=== PATIENT | female | born 1965 | race Hispanic/Latino ===

== ENCOUNTER 2017-07-25 20:35 | Emergency (ER) | payer MEDICAID ==
[2017-07-25] MEDS ORDERED: KETOROLAC TROMETHAMINE 60 MG/2 ML VIAL ONE (20:44)
[2017-07-25] MEDS ORDERED: ACETAMINOPHEN EXTRA STRENGTH 500 MG TABLET ONE (20:44)
[2017-07-25] MEDS ORDERED: OSELTAMIVIR PHOSPHATE 75 MG CAP ONE (21:06)
== END 2017-07-25 22:10 | disposition home or self-care (01) ==
LOC: EDH 20:35
DX: J11.1 Influenza due to unidentified influenza virus with other respiratory manifestations (principal); F31.9 Bipolar disorder, unspecified; Z72.0 Tobacco use
CPT/HCPCS: 87804 ×2; 99284; J1885

== ENCOUNTER 2017-08-06 14:07 | Emergency (ER) | payer MEDICAID ==
[2017-08-06 15:30] LABS: BASOPHILS % (AUTO) 0.3 % (0.0-5.0); EOSINOPHILS % (AUTO) 1.2 % (0.0-8.0); LYMPHOCYTES % (AUTO) 16.9 % (21.0-51.0); MEAN CORPUSCULAR HEMOGLOBIN 25.4 pg (27.0-33.0); MEAN CORPUSCULAR HGB CONC 31.9 g/dL (32.0-36.0); MEAN CORPUSCULAR VOLUME 79.6 fL (79-99); MONOCYTES % (AUTO) 10.2 % (3.0-13.0); NEUTROPHILS % (AUTO) 71.4 % (40.0-77.0); PLATELET COUNT (AUTO) 399 K/uL (130-400); RED BLOOD CELL COUNT(AUTO) 4.65 MIL/uL (4.00-5.50); RED CELL DISTRIBUTION WIDTH 16.2 % (11.0-15.5); WHITE BLOOD COUNT (AUTO) 15.3 K/uL (4.8-10.8)
[2017-08-06 15:47] LABS: CREATININE 0.7 mg/dL (0.5-1.5); POTASSIUM 3.4 mmol/L (3.5-5.1)
[2017-08-06 15:51] LABS: ALBUMIN 3.1 g/dL (3.5-5.0); BILIRUBIN,TOTAL 0.7 mg/dL (0.2-1.0); TOTAL PROTEIN, SERUM 7.6 g/dL (6.0-8.3)
== END 2017-08-06 16:23 | disposition home or self-care (01) ==
LOC: EDH 14:07
DX: J06.9 Acute upper respiratory infection, unspecified (principal)
CPT/HCPCS: 36415; 71046; 80053; 85025

== ENCOUNTER 2018-01-21 16:24 | Emergency (ER) | payer MEDICAID ==
[2018-01-21 16:54] LABS: APPEARANCE,URINE Clear (CLEAR); BILIRUBIN,URINE Negative (NEGATIVE); COLOR,URINE Dark Yellow (YELLOW); GLUCOSE, URINE (UA) Negative (NEGATIVE); KETONES,URINE Negative (NEGATIVE); LEUKOCYTE ESTERASE ,URINE Negative (NEGATIVE); NITRATE,URINE Negative (NEGATIVE); OCCULT BLOOD,URINE Negative (NEGATIVE); PH,URINE 5.5 (5.0-8.0); PROTEIN,URINE Trace (NEGATIVE)
[2018-01-21 16:59] LABS: BASOPHILS % (AUTO) 0.9 % (0.0-5.0); EOSINOPHILS % (AUTO) 5.4 % (0.0-8.0); HEMATOCRIT 41.2 % (36-48); MEAN CORPUSCULAR HEMOGLOBIN 28.6 pg (27.0-33.0); MEAN CORPUSCULAR HGB CONC 33.8 g/dL (32.0-36.0); MEAN CORPUSCULAR VOLUME 84.4 fL (79-99); MONOCYTES % (AUTO) 7.2 % (3.0-13.0); NEUTROPHILS % (AUTO) 56.5 % (40.0-77.0); PLATELET COUNT (AUTO) 275 K/uL (130-400); RED BLOOD CELL COUNT(AUTO) 4.89 MIL/uL (4.00-5.50); RED CELL DISTRIBUTION WIDTH 14.6 % (11.0-15.5); WHITE BLOOD COUNT (AUTO) 8.1 K/uL (4.8-10.8)
[2018-01-21 17:04] LABS: BACTERIA,URINE Rare /HPF (None Seen); MUCUS,URINE Many LPF (None Seen); RBC,URINE None Seen /HPF (0-1); SQUAMOUS EPITHELIAL CELL,UR 0-2 /HPF (0-2); WBC,URINE None Seen /HPF (0-1)
[2018-01-21 17:20] LABS: CREATININE 0.8 mg/dL (0.5-1.5); POTASSIUM 3.5 mmol/L (3.5-5.1)
[2018-01-21 17:21] LABS: AMPHET/METH SCREEN,URINE NEGATIVE (NEGATIVE); BARBITURATE SCREEN, URINE NEGATIVE (NEGATIVE); BENZODIAZEPINES SCREEN,URINE NEGATIVE (NEGATIVE); CANNABINOID SCREEN,URINE NEGATIVE (NEGATIVE); COCAINE SCREEN,URINE NEGATIVE (NEGATIVE); OPIATE SCREEN,URINE NEGATIVE (NEGATIVE); PHENCYCLIDINE SCREEN,URINE NEGATIVE (NEGATIVE)
[2018-01-21 17:22] LABS: INR 0.95 (0.85-1.15); PARTIAL THROMBOPLASTIN TIME 23.4 SEC (26.3-35.5)
[2018-01-21 17:33] LABS: ALBUMIN 3.3 g/dL (3.5-5.0); BILIRUBIN,TOTAL 0.3 mg/dL (0.2-1.0); CREATINE KINASE MB 0.7 ng/mL (0.5-3.6); TOTAL PROTEIN, SERUM 7.8 g/dL (6.0-8.3)
[2018-01-21] MEDS ORDERED: POLYETHYLENE GLYCOL 3350 17 GM POWD.PACK ONE (17:54)
[2018-01-21] MEDS ORDERED: HYOSCYAMINE SULFATE 0.125 MG TAB.SUBL SL ONE (17:55)
== END 2018-01-21 19:28 | disposition home or self-care (01) ==
LOC: EDH 16:24
DX: K59.00 Constipation, unspecified (principal); R10.32 Left lower quadrant pain; R03.0 Elevated blood-pressure reading, without diagnosis of hypertension; F31.9 Bipolar disorder, unspecified; Z87.442 Personal history of urinary calculi; Z90.710 Acquired absence of both cervix and uterus; Z72.0 Tobacco use
CPT/HCPCS: 36415; 74018; 80053; 80305; 81001; 82550; 82553; 83690; 84484; 85025; 85610; 85730; 93005

== ENCOUNTER 2024-11-29 09:14 | Inpatient (IN) | payer MEDICAID ==
[~2024-11-29] VITALS: Ht 149.9 cm; Wt 86.2 kg
[2024-11-29] MEDS: MAG/ALUM/SIMETH 30 ML UDCUP PO ONE (09:56)
[2024-11-29 09:57] LABS: APPEARANCE,URINE CLEAR (CLEAR); BILIRUBIN,URINE NEGATIVE (NEGATIVE); COLOR,URINE LIGHT-YELLOW (YELLOW); GLUCOSE, URINE (UA) NEGATIVE (NEGATIVE); KETONES,URINE NEGATIVE (NEGATIVE); LEUKOCYTE ESTERASE ,URINE NEGATIVE Leu/uL (NEGATIVE); NITRATE,URINE NEGATIVE (NEGATIVE); OCCULT BLOOD,URINE MODERATE (NEGATIVE); PROTEIN,URINE NEGATIVE (NEGATIVE); UROBILINOGEN,URINE 0.2 mg/dL (0.2-1.0)
[2024-11-29] MEDS: ondanSETRON 4MG INJ IVP ONE (09:57)
[2024-11-29] MEDS: FAMOTIDINE 20MG VIAL IV ONE (09:57)
[2024-11-29] MEDS: DICYCLOMINE HCL 10 MG/5 ML ML PO ONE (09:57)
[2024-11-29] MEDS: LIDOCAINE HCL 2% VISCOUS 15 ML UDCUP PO ONE (09:57)
[2024-11-29] MEDS: DICYCLOMINE 20MG (10MG/ML) AMP IM ONE (09:57)
[2024-11-29] MEDS: HYOSCYAMINE SULFATE 0.125 MG TAB.SUBL SL ONE (09:57)
[2024-11-29] MEDS: PANTOPrazole 40 MG/VIAL IVP ONE (09:57)
[2024-11-29 09:59] LABS: BASOPHILS # (AUTO) 0.06 K/uL (0.00-0.20); EOSINOPHILS # (AUTO) 0.67 K/uL (0.00-0.70); HEMATOCRIT 37.8 % (36-48); IMMATURE GRANULOCYTE ABSOLUTE 0.02 K/uL (0-1); LYMPHOCYTES # (AUTO) 1.4 K/uL (1.0-4.8); LYMPHOCYTES % (AUTO) 23.1 % (21.0-51.0); MEAN CORPUSCULAR HEMOGLOBIN 33.4 pg (27.0-33.0); MEAN CORPUSCULAR HGB CONC 33.9 g/dL (32.0-36.0); MEAN CORPUSCULAR VOLUME 98.7 fL (79-99); MONOCYTES # (AUTO) 0.7 K/uL (0.1-1.0); MONOCYTES % (AUTO) 10.7 % (3.0-13.0); NEUTROPHILS # (AUTO) 3.3 K/uL (1.8-7.7); NEUTROPHILS % (AUTO) 53.9 % (40.0-77.0); PLATELET COUNT (AUTO) 92 K/uL (130-400); RED BLOOD CELL COUNT(AUTO) 3.83 MIL/uL (4.00-5.50); RED CELL DISTRIBUTION WIDTH 16.2 % (11.0-15.5); WHITE BLOOD COUNT (AUTO) 6.1 K/uL (4.8-10.8)
[2024-11-29 10:03] LABS: ADD UA MICROSCOPIC YES
[2024-11-29 10:05] LABS: SQUAMOUS EPITHELIAL CELL,UR FEW /HPF (0-2); WBC,URINE 0-1 /HPF (0-1)
[2024-11-29 10:06] LABS: CREATININE 0.7 mg/dL (0.5-1.0); POTASSIUM 3.7 mmol/L (3.5-5.1)
[2024-11-29 10:08] LABS: ALBUMIN 2.2 g/dL (3.5-5.0); BILIRUBIN,TOTAL 2.7 mg/dL (0.2-1.0); TOTAL PROTEIN, SERUM 6.7 g/dL (6.0-8.3)
--- NOTE | 2024-11-29 10:16 | ERN ---
General Chief Complaint: Abdominal Pain Stated Complaint: "STOMACH PAIN." Time Seen by MD: 09:16 History of Present Illness Initial Comments Ms. Pinedo is a 59-year-old female significant past medical history of gastritis, cirrhosis, GERD, fibromyalgia, kidney stones who presents today with a acute on chronic epigastric abdominal pain and diarrhea. She describes the pain as intense, gas like, sometimes radiating to the back, and temporarily relieved by passing gas. She reports frequent watery stools, abdominal distention and pain with movement or pressure. She also endorses bloating and visible stretch more changes suggesting ascites. Patient reports that she takes lactulose but has held it to secondary to her diarrhea. She denies fever chills nausea vomiting or chest pain. Allergies: Coded Allergies: No Known Drug Allergies (Unverified Allergy, Unknown, 11/29/24) Past Medical History Past Medical History: Cancer, Fibromyalgia, Gallstones, GERD, Hypertension, Kidney Stone, Liver Disease Medical History Other: GASTRITIS, UTERINE CANCER Past Surgical History: Appendectomy ROS Dictation Constitutional: Negative for fever,chills, and weight loss Eyes: Negative for injury, pain,redness, and discharge ENT: Negative for injury,pain or swelling Cardiovascular: Negative for chest pain, palpitations, and edema Respiratory: Negative for shortness of breath, cough, and wheezing, Abdomen/GI: Positive for distended abdomen Back: Negative for injury and pain : Positive for stones MS/Extremity: Negative for injury and deformity Skin: Negative for rash, and discoloration Neuro: Negative for headache, weakness, numbness, tingling, and seizure Psych: Negative for suicide ideation, homicidal ideation, and hallucinations Physical Exam Physical Exam Dictation General: awake, alert, NAD Head/Face: Normocephalic, atraumatic Eyes: PERRL, EOMI, vision at baseline ENT: oral cavity clear, TMs clear, no signs of infection Neck: Trachea midline, supple, no nuchal rigidity Cardiovascular: RRR, normal S1/S2, No MRGs, no JVD Respiratory: CTAB, no respiratory distress, No rales or wheezes Abdomen: Distended abdomen that is mild to moderate tenderness in the epigastric and right upper quadrant regions. Skin: Visible stripe, no rash or jaundice noted MS/Extremity: Pulses equal, no cyanosis, neurovascular intact, FROM Neuro: COAx4, GCS 15, strength 5/5, CN 2-12 intact, normal cerebellar exam, no rmal gait, Psych: Normal behavior, mood, and affect normal Results Laboratory and Microbiology Lab and Micro Result Laboratory Tests Test 11/29/24 09:26 11/29/24 09:43 Urine Color LIGHT-YELLOW (YELLOW) Urine Appearance CLEAR (CLEAR) Urine pH 8.0 (5.0-8.0) Urine Specific [place] 1.006 (1.001-1.031) Urine Protein NEGATIVE mg/dL (NEGATIVE) Urine Glucose (UA) NEGATIVE mg/dL (NEGATIVE) Urine Ketones NEGATIVE mg/dL (NEGATIVE) Urine Occult Blood MODERATE (NEGATIVE) H Urine Nitrate NEGATIVE (NEGATIVE) Urine Bilirubin NEGATIVE mg/dL (NEGATIVE) Urine Urobilinogen 0.2 mg/dL (0.2-1.0) Urine Leukocyte Esterase NEGATIVE Annie/uL Urine RBC 11-25 /HPF (0-1) H Urine WBC 0-1 /HPF (0-1) Urine Squamous Epithelial Cells FEW /HPF (0-2) Urine Bacteria None /HPF (None Seen) White Blood Count 6.1 K/uL (4.8-10.8) Red Blood Count 3.83 MIL/uL (4.00-5.50) L Hemoglobin 12.8 g/dL (12.0-16.0) Hematocrit 37.8 % (36-48) Mean Corpuscular Volume 98.7 fL (79-99) Mean Corpuscular Hemoglobin 33.4 pg (27.0-33.0) H Mean Corpuscular Hemoglobin Concent 33.9 g/dL (32.0-36.0) Red Cell Distribution Width 16.2 % (11.0-15.5) H Platelet Count 92 K/uL (130-400) L Mean Platelet Volume 11.1 fL (7.5-10.5) H Immature Granulocyte % (Auto) 0.3 % (0-1) Neutrophils (%) (Auto) 53.9 % (40.0-77.0) Lymphocytes (%) (Auto) 23.1 % (21.0-51.0) Monocytes (%) (Auto) 10.7 % (3.0-13.0) Eosinophils (%) (Auto) 11.0 % (0.0-8.0) H Basophils (%) (Auto) 1.0 % (0.0-5.0) Neutrophils # (Auto) 3.3 K/uL (1.8-7.7) Lymphocytes # (Auto) 1.4 K/uL (1.0-4.8) Monocytes # (Auto) 0.7 K/uL (0.1-1.0) Eosinophils # (Auto) 0.67 K/uL (0.00-0.70) Basophils # (Auto) 0.06 K/uL (0.00-0.20) Absolute Immature Granulocyte (auto 0.02 K/uL (0-1) Nucleated Red Blood Cells 0.0 % (0.0-0.19) Sodium Level 146 mmol/L (136-145) H Potassium Level 3.7 mmol/L (3.5-5.1) Chloride Level 113 mmol/L (101-111) H Carbon Dioxide Level 30 mmol/L (21-32) Blood Urea Nitrogen 5 mg/dL (7-18) L Creatinine 0.7 mg/dL (0.5-1.0) Glomerular Filtration Rate Calc 100 mL/min (>90) Random Glucose 100 mg/dL (70-105) Total Calcium 7.9 mg/dL (8.5-10.1) L Total Bilirubin 2.7 mg/dL (0.2-1.0) H Aspartate Amino Transf (AST/SGOT) 49 U/L (10-37) H Alanine Aminotransferase (ALT/SGPT) 27 U/L (12-78) Alkaline Phosphatase 192 U/L (50-136) H Ammonia 37 umol/L (11-32) H Troponin I High Sensitivity 96 ng/L (4-50) *H Total Protein 6.7 g/dL (6.0-8.3) Albumin 2.2 g/dL (3.5-5.0) L Amylase Level 57 U/L (25-115) # Lipase 101 U/L (16-77) H MDM Patient does have elevated lipase as well as a CT scan which shows acute pancreatitis. Patient will be admitted for further evaluation and care to the medicine service MDM: Differential diagnosis: Acute pancreatitis Rationale: Tests considered and ordered secondary to shared decision making include: labs, ECG and radiology Previous outside records reviewed: Old ER visits. Risk of complication and/or morbidity or mortality of patient management: None Medications-Per medication reconciliation Need for hospitalization: Patient does meet criteria for hospitalization. Need for emergency major/minor surgery: No There are no social concerns with this patient. Prescription drug management Prescriptions will include symptomatic care Patient's prior external medical records from other ER visits were reviewed by me as indicated. Prior testing and results from previous visits were reviewed. Prior tests were taken into account with medical decision making and resource utilization, independent historian/historians were used to obtain complete medical history. I independently interpreted the test that were performed, results were reviewed by me and considered findings on radiology if ordered. Medical management and examination interpretation discussions were had by me with other qualified healthcare professionals as indicated for the patient's care. ED Course Orders Procedure Category Date Status Time Cbc With Differential LAB 11/29/24 Complete 09:37 Comprehensive LAB 11/29/24 Complete Metabolic Panel 09:37 Amylase LAB 11/29/24 Complete 09:37 Troponin I High LAB 11/29/24 Complete Sensitivity 09:37 Urinalysis Profile LAB 11/29/24 Complete 09:37 Us Abdominal Ruq\\Ltd US 11/29/24 Resulted 09:37 Ondansetron 4mg Inj PHA 11/29/24 Complete (Zofran 4mg Inj) 10:00 Lidocaine Hcl 2% PHA 11/29/24 Complete Viscous (Lidocaine Hcl 10:00 Mag/Alum/Simeth 30ml PHA 11/29/24 Complete (Maalox Plus 30ml) 10:00 Dicyclomine Hcl PHA 11/29/24 Complete (Bentyl 20mg Inj) 10:00 Pantoprazole 40mg Inj PHA 11/29/24 Complete (Protonix 40mg Inj 10:00 Dicyclomine Hcl PHA 11/29/24 Complete (Bentyl 10mg/5ml 10:00 Famotidine 20mg Vial PHA 11/29/24 Complete (Pepcid 20mg Vial) 10:00 Hyoscyamine Sulfate PHA 11/29/24 Complete (Levsin) 10:00 Lipase LAB 11/29/24 Complete 09:37 Ammonia LAB 11/29/24 Complete 09:43 Ct Abd/Pel Wo Con CT 11/29/24 Resulted Renal/Appy 11:19 Current Medications Medications (Trade) Dose Ordered Sig/Gisella Route PRN Reason Start Time Stop Time Status Last Admin Dose Admin Al Hydroxide/Mg Hydroxide (MAALox PLUS 30ML) 30 ml ONCE ONCE PO 11/29/24 10:00 11/29/24 10:01 DC 11/29/24 09:56 Dicyclomine HCl (Bentyl 10mg/5ml Syrup) 10 mg ONCE ONCE PO 11/29/24 10:00 11/29/24 10:01 DC 11/29/24 09:57 Dicyclomine HCl (Bentyl 20mg Inj) 20 mg ONCE ONCE IM 11/29/24 10:00 11/29/24 10:01 DC 11/29/24 09:57 Famotidine (Pepcid 20mg Vial) 20 mg ONCE ONCE IV 11/29/24 10:00 11/29/24 10:01 DC 11/29/24 09:57 Hyoscyamine Sulfate (Levsin) 0.125 mg ONCE ONCE SL 11/29/24 10:00 11/29/24 10:01 DC 11/29/24 09:57 Lidocaine HCl (Lidocaine HCl 2% Viscous) 10 ml ONCE ONCE PO 11/29/24 10:00 11/29/24 10:01 DC 11/29/24 09:57 Ondansetron HCl (zoFRAN 4MG INJ) 4 mg ONCE ONCE IVP 11/29/24 10:00 11/29/24 10:01 DC 11/29/24 09:57 Pantoprazole Sodium (PROTonix 40MG INJ) 40 mg ONCE ONCE IVP 11/29/24 10:00 11/29/24 10:01 DC 11/29/24 09:57 Vital Signs Date Time Temp Pulse Resp B/P (MAP) Pulse Ox O2 Delivery O2 Flow Rate FiO2 11/29/24 12:04 99.0 78 17 143/78 97 Room Air* 0 21 11/29/24 10:16 98.4 83 18 158/84 99 Room Air* 0 21 11/29/24 09:15 98.4 95 20 170/89 96 Room Air 0 DX & DISP Disposition: Inpatient Departure Impression: Primary Impression: Acute pancreatitis Condition: Stable Referrals: SILVESTRE WEBSTER MD (PCP) ABDIAZIZ SEGOVIA MD November 29, 2024 10:16
--- NOTE | 2024-11-29 12:10 | HMCIMG ---
US ABDOMINAL RUQ\E\LTD HISTORY: Adominal Pain TECHNIQUE: US ABDOMINAL RUQ\E\LTD. FINDINGS: LIVER: Cirrhotic morphology of the liver is seen. The liver measures 13.3 cm. GALLBLADDER: Surgically removed. CBD: Measures up to 0.7cm. PANCREAS: The visualized pancreas appears within normal limits. The pancreatic was not well seen due to overlying bowel gas. RIGHT KIDNEY: measures 10.2cm in length. No hydronephrosis or calculi. Small amount of perihepatic fluid is seen. Study is degraded to prominent bowel gas. IMPRESSION: Cirrhosis with a small amount of perihepatic ascites.
--- NOTE | 2024-11-29 12:24 | HMCIMG ---
CT ABD/PEL WO CON RENAL/APPY INDICATION: ABD PAIN TECHNIQUE: CT ABD/PEL WO CON RENAL/APPY. Oral contrast was not given. Coronal and sagittal reformats were performed. CT was performed with one or more of the following dose reduction techniques: Automated exposure control, adjustment of the mA and/or kV according to the patient's size, or use of the iterative reconstruction technique. Comparison: 04/20/2017 FINDINGS: The noncontrast nature this study limits evaluation of abdominal viscera. No pulmonary consolidation or pleural effusion is seen. Cirrhotic morphology of the liver is seen with a small amount of perihepatic ascites. There is splenomegaly measuring 13.8 cm. Mild nonspecific mesenteric edema is seen as well as nonspecific stranding surrounding the pancreas. Correlate clinically for mild pancreatitis. Nonobstructing bilateral intrarenal calculi are seen, the largest measuring 1 cm in the lower pole of the left kidney. No hydronephrosis. The urinary bladder is partially collapsed. Hysterectomy changes are seen. There is a small amount of ascites in the pelvis. No bowel obstruction identified. Appendix is not clearly visualized limiting evaluation. Correlate clinically. Atherosclerotic changes of the aorta with calcified plaques. Degenerative changes of the spine are seen. IMPRESSION: 1. Cirrhotic morphology of the liver is seen with a small amount of perihepatic ascites. There is splenomegaly measuring 13.8 cm. 2. Mild nonspecific mesenteric edema is seen as well as nonspecific stranding surrounding the pancreas. Correlate clinically for mild pancreatitis. Additional findings as described above.
[2024-11-29] MEDS ORDERED: acetaMINOPHEN 325 MG TAB PO PRN (14:30)
[2024-11-29] MEDS ORDERED: ondanSETRON 4MG INJ IVP PRN (14:30)
[2024-11-29] MEDS: LACTATED RINGERS 1000ML 1,000 ML IV SCH (14:49)
[2024-11-29 15:12] LABS: AMPHET/METH SCREEN,URINE NEGATIVE (NEGATIVE); BARBITURATE SCREEN, URINE NEGATIVE (NEGATIVE); BENZODIAZEPINES SCREEN,URINE NEGATIVE (NEGATIVE); CANNABINOID SCREEN,URINE NEGATIVE (NEGATIVE); COCAINE SCREEN,URINE NEGATIVE (NEGATIVE); OPIATE SCREEN,URINE NEGATIVE (NEGATIVE); PHENCYCLIDINE SCREEN,URINE NEGATIVE (NEGATIVE)
--- NOTE | 2024-11-29 15:30 | EKG ---
[facility] Test Date: 2024-11-29 Test Time: 14:26:54 Pat Name: BERTO RITTER Department: [facility] Room: 308 Gender: F Skate Hop: [id number] : 1965 Requested By: REJI BEAR Order Number: [id number] Reading MD: Chase Velazco Measurements Intervals [place] Rate: 79 P: 67 [place]: 140 QRS: 17 QRSD: 74 T: 27 QT: 414 QTc: 475 Interpretive Statements Sinus rhythm Low voltage, precordial leads Compared to ECG 01/21/2018 16:59:42 Low QRS voltage now present Electronically Signed On 11-30-2024 13:14:57 CDT by Chase Velazco Please click the below link to view image of tracing.
--- NOTE | 2024-11-29 15:53 | NUR ---
PENDING FAMILY TO BRING MEDICATIONS FROM HOME.
--- NOTE | 2024-11-29 16:25 | NUR ---
REPORT GIVEN TO SANDY NURSE AT 1610 PT AAOX4 STABLE NO DISTRESS NO C/O PAIN NOW. PT TAKEN UP IN STRETCHER WITH PERSONAL BELONGINGS.
[2024-11-29 16:32] LABS: INR 1.48 (0.85-1.15); PROTHROMBIN TIME 15.1 SEC (9.6-11.6)
[2024-11-29 16:33] LABS: PARTIAL THROMBOPLASTIN TIME 34.1 SEC (26.3-35.5)
[2024-11-29 16:38] LABS: CREATINE KINASE, TOTAL 154 U/L (21-232)
[2024-11-29 16:40] VITALS: BP 141/74; PULSE 82; RESP 20; TEMP 97.9
[2024-11-29 16:50] VITALS: O2SAT 99
[2024-11-29] MEDS ORDERED: LACT-441 PO (17:11)
[2024-11-29] MEDS ORDERED: AMLO2.5T4 PO (17:11)
[2024-11-29] MEDS ORDERED: PANT40TA54 PO (17:11)
[2024-11-29 17:25] LABS: CHOLESTEROL 140 mg/dL (<200); HDL CHOLESTEROL 132 mg/dL (35-85); LDL DIRECT 73 mg/dL (0-99); TRIGLYCERIDES 99 mg/dL (30-200)
[2024-11-29] MEDS ORDERED: PoTASSium chloRIDE 20MEQ/100ML 100 ML IV PRN (19:30)
[2024-11-29] MEDS ORDERED: PoTASSium chl 10% ELIXIR 20MEQ 20 MEQ/15 ML UDCUP PO PRN (19:30)
[2024-11-29] MEDS ORDERED: PoTASSium chloRIDE 20MEQ ER 20 MEQ ERTAB PO PRN (19:30)
--- NOTE | 2024-11-29 19:38 | HP ---
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 Symptoms have been accompanied by nausea and vomiting as well. The pain was [id number] in intensity which she rates as 8/10. Patient also reports having loose stool over the last 2-3 days. Patient does have underlying history of liver cirrhosis and she takes lactulose as well which she has been holding for the past two days due to persistent diarrhea. Patient reports that she has had similar symptoms earlier this year requiring hospitalization in [facility]. She states that she may have had episode of pancreatitis then. She had similar symptoms again in October requiring hospitalization [facility] and was told that she had nephrolithiasis causing the symptoms. She is supposed to follow up with Urology as outpatient for left renal nephrolithiasis. Patient denies any significant cardiac comorbidities. She is followed by Dr. Lisa with Cardiology as outpatient. Denies any previous history of [place] otherwise. She is followed by Dr. Cifuentes with GI as outpatient. She reports having previous history of esophageal varices as well requiring endoscopy. She denies any significant alcohol consumption and reports previous history of cholecystectomy. Patient on presentation to the hospital was found to have WBC count of 6100, hemoglobin of 12.8, [place] [address]. BMP on presentation was remarkable for sodium of 146, potassium 3.6, chloride of 113, BUN of five, creatinine of 0.7, AST of 49, ALT of 27, alkaline phosphatase of 192, ammonia of 37, high sensitivity troponin was noted to be mildly elevated in 96, albumin 2.2, lipase was noted to be elevated at 101. Patient underwent CT abdomen pelvis without contrast which showed cirrhosis of the liver with splenomegaly and mild nonspecific mesenteric edema with mild stranding noted around the pancreas concerning for pancreatitis. Patient will be admitted for further treatment and management of pancreatitis. Discussed with Dr. Cifuentes who is currently out of town, we will obtain MRCP to rule out any significant biliary abnormality for further elucidation of pancreatitis. Cardiac panel will be trended to rule out active ACS, EKG shows normal sinus rhythm. Patient's case was discussed with Dr. Gao with Cardiology, recommends for monitoring for now and troponin elevation likely secondary to pancreatitis. We will monitor this patient closely and see how she progresses over the next 48-72 hours. REVIEW OF SYSTEMS CONSTITUTIONAL: Denies fevers, chills, or night sweats. No unintentional weight loss reported. NEUROLOGICAL: Denies headache, amaurosis fugax, motor weakness, sensory deficit, vertigo/spinning sensation, gait abnormalities, or tremors. ENT: No hearing loss, otalgia, otorrhea, rhinitis, rhinorrhea, hoarseness, or sore throat. CARDIOVASCULAR: Denies any exertional angina, dyspnea on exertion, orthopnea, paroxysmal nocturnal dyspnea, palpitations, life-threatening arrhythmias, claudication. PULMONARY: Denies any shortness of breath, cough, phlegm/sputum, hemoptysis, pleuritic chest pain. SLEEP: Denies morning headaches, daytime somnolence or napping. Denies difficulty falling asleep, staying asleep, waking from sleep. Denies knowledge of snoring. GASTROINTESTINAL: Nausea, vomiting, abdominal pain, diarrhea GENITOURINARY: Denies frequency, urgency, nocturia, hematuria or incontinence (Storage/Irritative symptoms.) Low urinary stream, straining to void, urinary intermittency or hesitancy, splitting of the voiding stream, terminal dribbling. ENDOCRINOLOGIC: Denies polyuria, polydipsia, polyphagia or heat/cold intolerances. HEMATOLOGIC: Denies thrombophilia/previous clots, or coagulopathy/bleeding disorders. ONCOLOGIC: Denies personal history of malignancy. DERMATOLOGIC: Denies rashes or pruritus. PSYCHIATRIC: Denies any suicidal or homicidal ideation. Denies hallucinations. PAST MEDICAL HISTORY: Hypertension, fibromyalgia, cirrhosis of the liver, history of hepatitis-C status post treatment, history of left renal nephrolithiasis, prior history of pancreatitis PAST SURGICAL HISTORY: Previous history of cholecystectomy, history of appendectomy PAST SOCIAL HISTORY: Patient denies any history of significant smoking or alcohol consumption FAMILY HISTORY: Denies pertinent family history Allergies: No known drug allergies Home medications: Patient reports being on amlodipine 2.5 mg daily, lactulose 30 ml b.i.d., and Protonix 40 mg daily Coded Allergies: No Known Drug Allergies (Unverified Allergy, Unknown, 11/29/24) PHYSICAL EXAM GENERAL APPEARANCE: The patient is awake, alert, and oriented, in no acute cardiopulmonary distress. NEUROLOGICAL: Cranial nerves II-XII grossly intact. Motor is 5/5 in bilateral upper and lower extremities proximal to distal. No sensory deficits. HEENT: Face is symmetric. Pupils are equal and reactive. Extraocular movements are intact. NECK: Supple. No JVD. No thyromegaly. No submental, submandibular, pre- /postauricular, occipital or supraclavicular lymphadenopathy. CHEST: Normal chest expansion. No Telemetry. LUNGS: Absence of any rales, rhonchi or any wheezing. CARDIOVASCULAR: Regular. S1 and S2 normal. No appreciable rubs, murmurs or gallops. ABDOMEN: Soft, nontender, and nondistended. There is no rebound, voluntary guarding, or rigidity. : Deferred. No [place]. EXTREMITIES: Non-edematous and not cyanotic. No clubbing. Good capillary refill. SKIN: No skin breakdown. Vital Sign (Last 24 Hours) 11/29/24 11/29/24 16:40 16:50 Temp 97.9 Pulse 82 Resp 20 B/P (MAP) 141/74 Pulse Ox 99 O2 Delivery Room Air* O2 Flow Rate 0 FiO2 21 LABS: Laboratory: Test 11/29/24 16:13 11/29/24 09:46 11/29/24 09:43 11/29/24 09:26 Range/Units Erythrocyte Sedimentation Rate 7 0-30 MM/HR Prothrombin Time 15.1 H 9.6-11.6 SEC Prothromb Time International Ratio 1.48 H 0.85-1.15 Activated Partial Thromboplast Time 34.1 26.3-35.5 SEC Lactate Dehydrogenase 308 H 81-234 U/L Total Creatine Kinase 154 # 21-232 U/L Troponin I High Sensitivity 109 *H 4-50 ng/L C-Reactive Protein, Quantitative 8.60 H 0.5-3.0 mg/L B-Type Natriuretic Peptide 93 0-100 pg/mL Triglycerides Level 104 30-200 mg/dL Cholesterol Level 140 <200 mg/dL LDL Cholesterol 73 0-99 mg/dL HDL Cholesterol 132 H 35-85 mg/dL Procalcitonin < 0.05 L 0.05-0.5 ng/mL Urine Opiates Screen NEGATIVE NEGATIVE Urine Barbiturates Screen NEGATIVE NEGATIVE Urine Phencyclidine Screen NEGATIVE NEGATIVE Urine Amphetamines Screen NEGATIVE NEGATIVE Urine Benzodiazepines Screen NEGATIVE NEGATIVE Urine Cocaine Screen NEGATIVE NEGATIVE Urine Marijuana (THC) Screen NEGATIVE NEGATIVE White Blood Count 6.1 4.8-10.8 K/uL Red Blood Count 3.83 L 4.00-5.50 MIL/uL Hemoglobin 12.8 12.0-16.0 g/dL Hematocrit 37.8 36-48 % Mean Corpuscular Volume 98.7 79-99 fL Mean Corpuscular Hemoglobin 33.4 H 27.0-33.0 pg Mean Corpuscular Hemoglobin Concent 33.9 32.0-36.0 g/dL Red Cell Distribution Width 16.2 H 11.0-15.5 % Platelet Count 92 L 130-400 K/uL Mean Platelet Volume 11.1 H 7.5-10.5 fL Immature Granulocyte % (Auto) 0.3 0-1 % Neutrophils (%) (Auto) 53.9 40.0-77.0 % Lymphocytes (%) (Auto) 23.1 21.0-51.0 % Monocytes (%) (Auto) 10.7 3.0-13.0 % Eosinophils (%) (Auto) 11.0 H 0.0-8.0 % Basophils (%) (Auto) 1.0 0.0-5.0 % Neutrophils # (Auto) 3.3 1.8-7.7 K/uL Lymphocytes # (Auto) 1.4 1.0-4.8 K/uL Monocytes # (Auto) 0.7 0.1-1.0 K/uL Eosinophils # (Auto) 0.67 0.00-0.70 K/uL Basophils # (Auto) 0.06 0.00-0.20 K/uL Absolute Immature Granulocyte (auto 0.02 0-1 K/uL Nucleated Red Blood Cells 0.0 0.0-0.19 % Sodium Level 146 H 136-145 mmol/L Potassium Level 3.7 3.5-5.1 mmol/L Chloride Level 113 H 101-111 mmol/L Carbon Dioxide Level 30 21-32 mmol/L Blood Urea Nitrogen 5 L 7-18 mg/dL Creatinine 0.7 0.5-1.0 mg/dL Glomerular Filtration Rate Calc 100 >90 mL/min Random Glucose 100 70-105 mg/dL Total Calcium 7.9 L 8.5-10.1 mg/dL Total Bilirubin 2.7 H 0.2-1.0 mg/dL Aspartate Amino Transf (AST/SGOT) 49 H 10-37 U/L Alanine Aminotransferase (ALT/SGPT) 27 12-78 U/L Alkaline Phosphatase 192 H 50-136 U/L Ammonia 37 H 11-32 umol/L Total Protein 6.7 6.0-8.3 g/dL Albumin 2.2 L 3.5-5.0 g/dL Amylase Level 57 # 25-115 U/L Lipase 101 H 16-77 U/L Urine Color LIGHT-YELLOW YELLOW Urine Appearance CLEAR CLEAR Urine pH 8.0 5.0-8.0 Urine Specific [place] 1.006 1.001-1.031 Urine Protein NEGATIVE NEGATIVE mg/dL Urine Glucose (UA) NEGATIVE NEGATIVE mg/dL Urine Ketones NEGATIVE NEGATIVE mg/dL Urine Occult Blood MODERATE H NEGATIVE Urine Nitrate NEGATIVE NEGATIVE Urine Bilirubin NEGATIVE NEGATIVE mg/dL Urine Urobilinogen 0.2 0.2-1.0 mg/dL Urine Leukocyte Esterase NEGATIVE NEGATIVE Annie/uL Urine RBC 11-25 H 0-1 /HPF Urine WBC 0-1 0-1 /HPF Urine Squamous Epithelial Cells FEW 0-2 /HPF Urine Bacteria None None Seen /HPF Current Medications Medications (Trade) Dose Ordered Sig/Gisella Route PRN Reason Start Time Stop Time Status Last Admin Dose Admin Acetaminophen (TYLenol 325MG TAB) 650 mg Q6H PRN PO MILD PAIN (1-3) 11/29/24 14:30 12/29/24 14:29 Lactated Ringer's 1,000 ml @ 100 mls/hr Q10H IV 11/29/24 14:30 12/29/24 14:29 11/29/24 14:49 100 MLS/HR Morphine Sulfate (morPHINE 2MG SYG) 2 mg Q6H PRN IVP SEVERE PAIN (7-10) 11/29/24 14:30 12/06/24 14:29 Ondansetron HCl (zoFRAN 4MG INJ) 4 mg Q6H PRN IVP NAUSEA/VOMITING 11/29/24 14:30 12/29/24 14:29 Pantoprazole Sodium (PROTonix 40MG INJ) 40 mg DAILY IVP 11/30/24 09:00 12/30/24 08:59 DIAGNOSTICS / RADIOLOGY: SERVICE 1119 REASON: ABD PAIN ORDERING PHYSICIAN: ABDIAZIZ SEGOVIA MD PROCEDURE: ABD PELVWO - CT ABD/PEL WO CON RENAL/APPY CT ABD/PEL WO CON RENAL/APPY INDICATION: ABD PAIN TECHNIQUE: CT ABD/PEL WO CON RENAL/APPY. Oral contrast was not given. Coronal and sagittal reformats were performed. CT was performed with one or more of the following dose reduction techniques: Automated exposure control, adjustment of the mA and/or kV according to the patient's size, or use of the iterative reconstruction technique. Comparison: 04/20/2017 FINDINGS: The noncontrast nature this study limits evaluation of abdominal viscera. No pulmonary consolidation or pleural effusion is seen. Cirrhotic morphology of the liver is seen with a small amount of perihepatic ascites. There is splenomegaly measuring 13.8 cm. Mild nonspecific mesenteric edema is seen as well as nonspecific stranding surrounding the pancreas. Correlate clinically for mild pancreatitis. Nonobstructing bilateral intrarenal calculi are seen, the largest measuring 1 cm in the lower pole of the left kidney. No hydronephrosis. The urinary bladder is partially collapsed. Hysterectomy changes are seen. There is a small amount of ascites in the pelvis. No bowel obstruction identified. Appendix is not clearly visualized limiting evaluation. Correlate clinically. Atherosclerotic changes of the aorta with calcified plaques. Degenerative changes of the spine are seen. IMPRESSION: 1. Cirrhotic morphology of the liver is seen with a small amount of perihepatic ascites. There is splenomegaly measuring 13.8 cm. 2. Mild nonspecific mesenteric edema is seen as well as nonspecific stranding surrounding the pancreas. Correlate clinically for mild pancreatitis. Additional findings as described above. DICTATED BY: ENEDELIA MANCIA MD DATE: 11/29/249 ELECTRONICALLY SIGNED BY: ENEDELIA MANCIA MD DATE: 11/29/24 1224 ASSESSMENT: [Acute pancreatitis, POA Elevated troponin, likely demand ischemia, POA Underlying history of liver cirrhosis secondary to hepatitis-C, MELD Na score of 15, POA Hypernatremia, POA Hypoalbuminemia secondary to underlying cirrhosis of the liver, POA History of hypertension POA Obesity, POA Hx of RAQUEL, POA Prior history of pancreatitis, POA History of nephrolithiasis, POA History of fibromyalgia, POA Thrombocytopenia and coagulopathy secondary to portal hypertension/liver cirrhosis, POA PLAN: Patient will be admitted to cardiac telemetry floor Patient will be kept NPO Due to underlying history of liver cirrhosis with intra-abdominal ascites, we will start IV hydration with lactated Ringer's at 100 mL/hour, we will adjust fluid rate to reduce risk of hypervolemia/worsening ascites We will trend cardiac panel to rule out ACS, patient's case was discussed with Dr. Gao with Cardiology, we will follow up 2D echocardiogram, troponin elevation likely secondary to underlying pancreatitis for Cardiology Patient denies any significant alcohol consumption, reports history of cholecystectomy, triglycerides are normal as well, we will follow up MRCP for further workup of pancreatitis, patient's case was discussed with Dr. Cifuentes with GI who is currently out of town, we will see how patient progresses, we can consider consulting [facility] if further evaluation is warranted We will monitor closely for signs of infection Pain control with IV morphine for severe pain Patient will be placed on GI prophylaxis with Protonix We will monitor closely for signs of bleeding, we will monitor closely for signs of infection We will see how patient progresses in the next 48-72 hours We will restart home medications including lactulose, amlodipine tomorrow Patient to continue with CPAP at night Date of service: 11/29/2024 Plan of care was discussed with patient at bedside, Wood Torrez MD Advanced Care Planning: Which of the following were discussed: Hospice care: Yes __ No _X_ Therapeutic options: Yes _X_ No __ Advance directives: Yes _X_ No __ Other discussions: Discussed with who?: Patient Voluntary nature of this service was explained to the patient? Yes _x_ No __ Amount of time spent: 20 minutes WOOD TORREZ MD November 29, 2024 19:38
[2024-11-29 20:00] VITALS: BP 145/78; PULSE 68; RESP 20; TEMP 97.9; O2SAT 98
[2024-11-29 20:31] LABS: CREATINE KINASE, TOTAL 136 U/L (21-232)
[2024-11-29] MEDS: morPHINE 2 MG SYG IVP PRN (21:03)
[2024-11-29 23:33] VITALS: BP 134/71; PULSE 78; RESP 20; TEMP 98.2
[2024-11-29 23:53] VITALS: PULSE 68; RESP 18; O2SAT 96
[2024-11-30] VITALS (10 sets, daily range): BP systolic 124–153; BP diastolic 67–76; PULSE 80–102; RESP 16–18; TEMP 98.3–99.1; O2SAT 96–97
[2024-11-30 05:25] LABS: BASOPHILS # (AUTO) 0.09 K/uL (0.00-0.20); EOSINOPHILS # (AUTO) 0.23 K/uL (0.00-0.70); EOSINOPHILS % (AUTO) 2.5 % (0.0-8.0); HEMATOCRIT 37.7 % (36-48); IMMATURE GRANULOCYTE ABSOLUTE 0.04 K/uL (0-1); LYMPHOCYTES # (AUTO) 1.3 K/uL (1.0-4.8); LYMPHOCYTES % (AUTO) 14.7 % (21.0-51.0); MEAN CORPUSCULAR HEMOGLOBIN 32.6 pg (27.0-33.0); MEAN CORPUSCULAR HGB CONC 33.7 g/dL (32.0-36.0); MEAN CORPUSCULAR VOLUME 96.7 fL (79-99); MONOCYTES # (AUTO) 0.9 K/uL (0.1-1.0); MONOCYTES % (AUTO) 10.2 % (3.0-13.0); NEUTROPHILS # (AUTO) 6.4 K/uL (1.8-7.7); NEUTROPHILS % (AUTO) 71.2 % (40.0-77.0); PLATELET COUNT (AUTO) 105 K/uL (130-400); RED CELL DISTRIBUTION WIDTH 16.1 % (11.0-15.5)
[2024-11-30 05:38] LABS: ALBUMIN 2.1 g/dL (3.5-5.0); BILIRUBIN,TOTAL 4.2 mg/dL (0.2-1.0); CREATININE 0.7 mg/dL (0.5-1.0); MAGNESIUM 1.8 mg/dL (1.80-2.40); TOTAL PROTEIN, SERUM 6.4 g/dL (6.0-8.3)
[2024-11-30] MEDS: LACTULOSE 20 GM/30 ML UDCUP PO SCH (09:48)
[2024-11-30] MEDS: amLODIPine 2.5 MG TAB PO SCH (09:48)
[2024-11-30] MEDS: PANTOPrazole 40 MG/VIAL IVP SCH (09:48)
--- NOTE | 2024-11-30 13:00 | HMCSR ---
APPROVED REPORT EXAM: Two-dimensional and M-mode echocardiogram with Doppler and color Doppler. INDICATION ICD: Elevated troponin 2D Dimensions RVDd3.9 cmLVEF(%)78.5 (>50%)LVED Vol(simp.)77.0 mL IVSd0.9 (0.7-1.1cm)FS(%)47 %LVES Vol(simp.)28.0 mL LVDd4.6 (3.8-5.6cm)LA (2D)3.9 (1.6-4.0cm)LVEF(%, simp.)64 % PWd0.9 (0.7-1.1cm)Ao Root(2D)3.1 (2.0-3.7cm)LA ESV INDEX (BP)45.25 mL/m2 IVSs1.2 cm LVDs2.4 (2.5-4.0cm) PWs1.2 cm Deformation Strain Apical 4-16.6 % Apical 2-18.4 % Apical 3-19.7 % Global Strain-18.2 % M-Mode Dimensions EPSS0.6 cm LA (MM)2.7 (1.6-4.0cm) Ao Root(MM)2.9 (2.0-3.7cm) Aortic Valve AoV Vmax2.3 m/Wild Peak GR21.8 mmHgLVOT Vmax1.8 m/s AoV VTI0.4 mAo Mean GR11.3 mmHgLVOT VTI0.34 m Mitral Valve MV E Vmax86.9 cm/sDECEL Pbmi311 ms MV A Vmax94.5 cm/sP 1/2 T41 ms E/A ratio0.9MVA (PHT)5.4 cm2 TDI E/E' Jlojhp29.5E/E' Iyednub60.4 Medial E' Peak V6.44 cm/sLateral E' Peak V6.47 cm/s Pulmonary Valve PV Vmax1.5 m/sPV VTI0.24 mPV Mean GR5.7 mmHg PV Peak GR8.9 mmHg Tricuspid Valve TR Vmax2.5 m/sRAP (EST) 3 hfMpVDJN10.6 mmHg TR Peak GR26.6 mmHg Left Ventricle The left ventricle is normal size. GLS -18.0%. There is normal left ventricular wall thickness. LVEF is 60-65%. Stage I diastolic dysfunction. Right Ventricle The right ventricle is normal size. The right ventricular systolic function is normal. Atria The left atrium is moderately dilated. Possible PFO by color doppler. The right atrium size is normal . Aortic Valve The aortic valve is normal in structure. No aortic regurgitation is present. No aortic valvular veget ation noted. There is mild valvular aortic stenosis. Mitral Valve The mitral valve is normal in structure. There is trivial mitral valve regurgitation noted. There are no mitral valve vegetation noted. There is no mitral valve stenosis. Tricuspid Valve The tricuspid valve is normal in structure. There is mild tricuspid valve regurgitation noted. There is no tricuspid valve vegetation. Pulmonic Valve The pulmonary valve is normal in structure. There is no pulmonic valvular regurgitation. Great Vessels The aortic root is normal in size. The IVC is normal in size and collapses >50% with inspiration. Pericardium There is no pericardial effusion. Other Information Quality : Adequate Conclusion LVEF is 60-65%. Stage I diastolic dysfunction. GLS -18.0%. There is mild valvular aortic stenosis. There is mild tricuspid valve regurgitation noted.
--- NOTE | 2024-11-30 13:26 | PN ---
[facility] PROGRESS NOTE Date of Service: November 30, 2024 Time of Service: 13:[address] 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 Symptoms have been accompanied by nausea and vomiting as well. The pain was [id number] in intensity which she rates as 8/10. Patient also reports having loose stool over the last 2-3 days. Patient does have underlying history of liver cirrhosis and she takes lactulose as well which she has been holding for the past two days due to persistent diarrhea. Patient reports that she has had similar symptoms earlier this year requiring hospitalization in [facility]. She states that she may have had episode of pancreatitis then. She had similar symptoms again in October requiring hospitalization [facility] and was told that she had nephrolithiasis causing the symptoms. She is supposed to follow up with Urology as outpatient for left renal nephrolithiasis. Patient denies any significant cardiac comorbidities. She is followed by Dr. Lisa with Cardiology as outpatient. Denies any previous history of CA otherwise. She is followed by Dr. Cifuentes with GI as outpatient. She reports having previous history of esophageal varices as well requiring endoscopy. She denies any significant alcohol consumption and reports previous history of cholecystectomy. Patient on presentation to the hospital was found to have WBC count of 6100, hemoglobin of 12.8, [place] [address]. BMP on presentation was remarkable for sodium of 146, potassium 3.6, chloride of 113, BUN of five, creatinine of 0.7, AST of 49, ALT of 27, alkaline phosphatase of 192, ammonia of 37, high sensitivity troponin was noted to be mildly elevated in 96, albumin 2.2, lipase was noted to be elevated at 101.Patient underwent CT abdomen pelvis without contrast which showed cirrhosis of the liver with splenomegaly and mild nonspecific mesenteric edema with mild stranding noted around the pancreas concerning for pancreatitis. Patient will be admitted for further treatment and management of pancreatitis. Discussed with Dr. Cifuentes who is currently out of town, we will obtain MRCP to rule out any significant biliary abnormality for further elucidation of pancreatitis. Cardiac panel will be trended to rule out active ACS, EKG shows normal sinus rhythm. Patient's case was discussed with Dr. Gao with Cardiology, recommends for monitoring for now and troponin elevation likely secondary to pancreatitis. We will monitor this patient closely and see how she progresses over the next 48-72 hours. 11/30 patient was seen by nurse practitioner and physician during rounding in room 308. Most recent troponin is trending down today is 100. Ultrasound abdomen shows cirrhosis and small perihepatic ascites. CT abdomen/pelvis showed cystic liver ascites splenomegaly. Mesenteric edema surrounding pancreas. Mild pancreatitis. We are pending further evaluation of GI and school age program associate at this moment. 2D echo showed EF 60 to 65% stage I diastolic dysfunction. At this moment patient is pending MRCP. We will continue to monitor patient in the meantime. A.m. labs. ] REVIEW OF SYSTEMS CONSTITUTIONAL: Denies fevers, chills, or night sweats. No unintentional weight loss reported. NEUROLOGICAL: Denies headache, amaurosis fugax, motor weakness, sensory deficit, vertigo/spinning sensation, gait abnormalities, or tremors. ENT: No hearing loss, otalgia, otorrhea, rhinitis, rhinorrhea, hoarseness, or sore throat. CARDIOVASCULAR: Denies any exertional angina, dyspnea on exertion, orthopnea, paroxysmal nocturnal dyspnea, palpitations, life-threatening arrhythmias, cla udication. PULMONARY: Denies any shortness of breath, cough, phlegm/sputum, hemoptysis, pleuritic chest pain. SLEEP: Denies morning headaches, daytime somnolence or napping. Denies difficulty falling asleep, staying asleep, waking from sleep. Denies knowledge of snoring. GASTROINTESTINAL: Denies any Nausea, vomiting, abdominal pain, GENITOURINARY: Denies frequency, urgency, nocturia, hematuria or incontinence (Storage/Irritative symptoms.) Low urinary stream, straining to void, urinary intermittency or hesitancy, splitting of the voiding stream, terminal dribbling. ENDOCRINOLOGIC: Denies polyuria, polydipsia, polyphagia or heat/cold intolerances. HEMATOLOGIC: Denies thrombophilia/previous clots, or coagulopathy/bleeding disorders. ONCOLOGIC: Denies personal history of malignancy. DERMATOLOGIC: Denies rashes or pruritus. PSYCHIATRIC: Denies any suicidal or homicidal ideation. Denies hallucinations. PHYSICAL EXAM GENERAL APPEARANCE: The patient is awake, alert, and oriented, in no acute cardiopulmonary distress. NEUROLOGICAL: Cranial nerves II-XII grossly intact. Motor is 5/5 in bilateral upper and lower extremities proximal to distal. No sensory deficits. HEENT: Face is symmetric. Pupils are equal and reactive. Extraocular movements are intact. NECK: Supple. No JVD. No thyromegaly. No submental, submandibular, pre- /postauricular, occipital or supraclavicular lymphadenopathy. CHEST: Normal chest expansion. No Telemetry. LUNGS: Absence of any rales, rhonchi or any wheezing. CARDIOVASCULAR: Regular. S1 and S2 normal. No appreciable rubs, murmurs or gallops. ABDOMEN: Soft, nontender, and nondistended. There is no rebound, voluntary guarding, or rigidity. : Deferred. No [place]. EXTREMITIES: Non-edematous and not cyanotic. No clubbing. Good capillary refill. SKIN: No skin breakdown. Vital Signs (last 8hr) Date Time Temp Pulse Resp B/P (MAP) Pulse Ox O2 Delivery O2 Flow Rate FiO2 11/30/24 11:40 98.6 102 18 132/71 96 Room Air 11/30/24 08:00 98.2 94 16 145/76 96 Room Air 11/30/24 07:22 96 18 N/A Room Air 21 LABS: Laboratory: Test 11/30/24 04:47 11/29/24 20:10 11/29/24 16:13 11/29/24 09:46 Range/Units White Blood Count 9.0 # 4.8-10.8 K/uL Red Blood Count 3.90 L 4.00-5.50 MIL/uL Hemoglobin 12.7 12.0-16.0 g/dL Hematocrit 37.7 36-48 % Mean Corpuscular Volume 96.7 79-99 fL Mean Corpuscular Hemoglobin 32.6 27.0-33.0 pg Mean Corpuscular Hemoglobin Concent 33.7 32.0-36.0 g/dL Red Cell Distribution Width 16.1 H 11.0-15.5 % Platelet Count 105 L 130-400 K/uL Mean Platelet Volume 11.6 H 7.5-10.5 fL Immature Granulocyte % (Auto) 0.4 0-1 % Neutrophils (%) (Auto) 71.2 40.0-77.0 % Lymphocytes (%) (Auto) 14.7 L 21.0-51.0 % Monocytes (%) (Auto) 10.2 3.0-13.0 % Eosinophils (%) (Auto) 2.5 0.0-8.0 % Basophils (%) (Auto) 1.0 0.0-5.0 % Neutrophils # (Auto) 6.4 1.8-7.7 K/uL Lymphocytes # (Auto) 1.3 1.0-4.8 K/uL Monocytes # (Auto) 0.9 0.1-1.0 K/uL Eosinophils # (Auto) 0.23 0.00-0.70 K/uL Basophils # (Auto) 0.09 0.00-0.20 K/uL Absolute Immature Granulocyte (auto 0.04 0-1 K/uL Nucleated Red Blood Cells 0.0 0.0-0.19 % Sodium Level 143 136-145 mmol/L Potassium Level 4.0 3.5-5.1 mmol/L Chloride Level 112 H 101-111 mmol/L Carbon Dioxide Level 26 21-32 mmol/L Blood Urea Nitrogen 7 7-18 mg/dL Creatinine 0.7 0.5-1.0 mg/dL Glomerular Filtration Rate Calc 100 >90 mL/min Random Glucose 81 70-105 mg/dL Total Calcium 7.9 L 8.5-10.1 mg/dL Magnesium Level 1.80 1.80-2.40 mg/dL Total Bilirubin 4.2 #H 0.2-1.0 mg/dL Aspartate Amino Transf (AST/SGOT) 46 H 10-37 U/L Alanine Aminotransferase (ALT/SGPT) 25 12-78 U/L Alkaline Phosphatase 167 H 50-136 U/L Total Protein 6.4 6.0-8.3 g/dL Albumin 2.1 L 3.5-5.0 g/dL Lipase 52 16-77 U/L Total Creatine Kinase 136 21-232 U/L Troponin I High Sensitivity 100 *H 4-50 ng/L Erythrocyte Sedimentation Rate 7 0-30 MM/HR Prothrombin Time 15.1 H 9.6-11.6 SEC Prothromb Time International Ratio 1.48 H 0.85-1.15 Activated Partial Thromboplast Time 34.1 26.3-35.5 SEC Lactate Dehydrogenase 308 H 81-234 U/L C-Reactive Protein, Quantitative 8.60 H 0.5-3.0 mg/L B-Type Natriuretic Peptide 93 0-100 pg/mL Triglycerides Level 104 30-200 mg/dL Cholesterol Level 140 <200 mg/dL LDL Cholesterol 73 0-99 mg/dL HDL Cholesterol 132 H 35-85 mg/dL Procalcitonin < 0.05 L 0.05-0.5 ng/mL Urine Opiates Screen NEGATIVE NEGATIVE Urine Barbiturates Screen NEGATIVE NEGATIVE Urine Phencyclidine Screen NEGATIVE NEGATIVE Urine Amphetamines Screen NEGATIVE NEGATIVE Urine Benzodiazepines Screen NEGATIVE NEGATIVE Urine Cocaine Screen NEGATIVE NEGATIVE Urine Marijuana (THC) Screen NEGATIVE NEGATIVE Test 11/29/24 09:43 11/29/24 09:26 Range/Units Ammonia 37 H 11-32 umol/L Amylase Level 57 # 25-115 U/L Urine Color LIGHT-YELLOW YELLOW Urine Appearance CLEAR CLEAR Urine pH 8.0 5.0-8.0 Urine Specific Morse 1.006 1.001-1.031 Urine Protein NEGATIVE NEGATIVE mg/dL Urine Glucose (UA) NEGATIVE NEGATIVE mg/dL Urine Ketones NEGATIVE NEGATIVE mg/dL Urine Occult Blood MODERATE H NEGATIVE Urine Nitrate NEGATIVE NEGATIVE Urine Bilirubin NEGATIVE NEGATIVE mg/dL Urine Urobilinogen 0.2 0.2-1.0 mg/dL Urine Leukocyte Esterase NEGATIVE NEGATIVE Annie/uL Urine RBC 11-25 H 0-1 /HPF Urine WBC 0-1 0-1 /HPF Urine Squamous Epithelial Cells FEW 0-2 /HPF Urine Bacteria None None Seen /HPF Current Medications Medications (Trade) Dose Ordered Sig/Gisella Route PRN Reason Start Time Stop Time Status Last Admin Dose Admin Acetaminophen (TYLenol 325MG TAB) 650 mg Q6H PRN PO MILD PAIN (1-3) 11/29/24 14:30 12/29/24 14:29 Amlodipine Besylate (NorvASC 2.5MG TAB) 2.5 mg DAILY PO 11/30/24 09:00 12/30/24 08:59 11/30/24 09:48 2.5 MG Dextrose (D50w) 50 ml AD PRN IV HYPOGLYCEMIA PROTOCOL 11/30/24 13:30 12/30/24 13:29 UNV Enoxaparin Sodium (Lovenox) 30 mg HS SQ 11/30/24 21:00 12/30/24 20:59 Glucagon (Glucagon 1mg Kit) 1 mg AD PRN IM HYPOGLYCEMIA PROTOCOL 11/30/24 13:30 12/30/24 13:29 UNV Insulin Human Regular (humuLIN R 100 UNIT/ML 3ML) INSULIN SLIDING SCAL... ACHS SQ 11/30/24 16:30 12/30/24 16:29 UNV Lactated Ringer's 1,000 ml @ 100 mls/hr Q10H IV 11/29/24 14:30 12/29/24 14:29 11/30/24 09:48 100 MLS/HR Lactulose (Constulose 20gm/ 30ml Udcup) 20 gm BID PO 11/30/24 09:00 12/30/24 08:59 11/30/24 09:48 20 GM Magnesium Sulfate 50 ml @ 0 mls/hr PROTOCOL PRN IV other 11/30/24 13:30 12/30/24 13:29 UNV Miscellaneous Medication (Lactulose ) 30 ml BID PO 11/30/24 21:00 11/30/24 10:13 DC Morphine Sulfate (morPHINE 2MG SYG) 2 mg Q6H PRN IVP SEVERE PAIN (7-10) 11/29/24 14:30 12/06/24 14:29 11/30/24 09:48 2 MG Ondansetron HCl (zoFRAN 4MG INJ) 4 mg Q6H PRN IVP NAUSEA/VOMITING 11/29/24 14:30 12/29/24 14:29 Pantoprazole Sodium (PROTonix 40MG INJ) 40 mg DAILY IVP 11/30/24 09:00 11/30/24 10:11 DC 11/30/24 09:48 40 MG Pantoprazole Sodium (PROTonix 40MG TAB) 40 mg DAILY PO 12/01/24 09:00 12/31/24 08:59 Potassium Chloride 100 ml @ 100 mls/hr AD PRN IV POTASSIUM PROTOCOL 11/29/24 19:30 12/29/24 19:29 Potassium Chloride 100 ml @ 100 mls/hr AD PRN IV POTASSIUM PROTOCOL 11/30/24 13:30 12/30/24 13:29 UNV Potassium Chloride (K-Dur/Klor-Con 20meq) 20 meq AD PRN PO POTASSIUM PROTOCOL 11/29/24 19:30 12/29/24 19:29 Potassium Chloride (K-Dur/Klor-Con 20meq) 20 meq AD PRN PO POTASSIUM PROTOCOL 11/30/24 13:30 12/30/24 13:29 UNV Potassium Chloride (KCl 10% Elixir 20meq/15ml) 20 meq AD PRN PO POTASSIUM PROTOCOL 11/29/24 19:30 12/29/24 19:29 Potassium Chloride (KCl 10% Elixir 20meq/15ml) 20 meq AD PRN PO POTASSIUM PROTOCOL 11/30/24 13:30 12/30/24 13:29 UNV DIAGNOSTICS / RADIOLOGY: [ ] ASSESSMENT: [Acute pancreatitis, POA Acute diastolic congestive heart failure EF 60 to 65% per 2D echo 11/30/2024 Elevated troponin, likely demand ischemia, POA Underlying history of liver cirrhosis secondary to hepatitis-C, MELD Na score of 15, POA Hypernatremia, POA Hypoalbuminemia secondary to underlying cirrhosis of the liver, POA Uncontrolled hypertension POA Obesity, POA RAQUEL, POA Prior history of pancreatitis, POA History of nephrolithiasis, POA History of fibromyalgia, POA Thrombocytopenia and coagulopathy secondary to portal hypertension/liver cirrh osis, POA PLAN: Medical-surgical floor with telemetry Patient will be kept NPO Continue LR at 100 mL/hour 2D echo 11/30/2024 showed EF 60 to 65% stage I diastolic dysfunction. Pending further evaluation of school age program associate Pending further evaluation/recommendations of pasta press operator We will monitor closely for signs of infection Pain control with IV morphine for severe pain Patient will be placed on GI prophylaxis with Protonix We will monitor closely for signs of bleeding, we will monitor closely for signs of infection Home medication reconciled Patient to continue with CPAP at night MRCP pending ATTESTATION BY PHYSICIAN I have seen and examined the patient. I reviewed the documentation, medical decision making, and treatment plan as noted by the mid-level provider above. I agree with the findings and plan of care. MARZENA HERRERA MD, KATARZYNA B [facility] November 30, 2024 13:26
[2024-11-30] MEDS ORDERED: MAGNESIUM 2GM PREMIX 50ML 50 ML IV PRN (13:30)
[2024-11-30] MEDS ORDERED: DEXTROSE 50%-WATER 50 ML DISP.SYRIN IV PRN ×2 (13:30)
[2024-11-30] MEDS ORDERED: PoTASSium chloRIDE 20MEQ ER 20 MEQ ERTAB PO PRN ×2 (13:30)
[2024-11-30] MEDS ORDERED: GLUCAGON 1MG KIT 1 MG ML IM PRN ×2 (13:30)
[2024-11-30] MEDS ORDERED: PoTASSium chl 10% ELIXIR 20MEQ 20 MEQ/15 ML UDCUP PO PRN ×2 (13:30)
[2024-11-30] MEDS ORDERED: PoTASSium chloRIDE 20MEQ/100ML 100 ML IV PRN ×2 (13:30)
[2024-11-30] MEDS ORDERED: INSULIN humuLIN R 100 UNIT/ML 3ML SQ SCH (16:30)
[2024-11-30] MEDS: INSULIN humuLIN R 100 UNIT/ML 3ML SQ SCH (16:30)
[2024-11-30] MEDS: MAGNESIUM 2GM PREMIX 50ML 50 ML IV PRN (16:53)
[2024-11-30] MEDS: ENOXAPARIN SODIUM 30 MG/0.3 ML SQ SCH (20:25)
[2024-11-30] MEDS ORDERED: NON-FORMULARY MEDICATION 1 EACH (Lactulose 30 ML) PO SCH (21:00)
[2024-12-01] VITALS (7 sets, daily range): BP systolic 121–135; BP diastolic 57–75; PULSE 84–90; RESP 17–20; TEMP 98–98.7; O2SAT 95–99
[2024-12-01 05:00] LABS: BASOPHILS # (AUTO) 0.07 K/uL (0.00-0.20); BASOPHILS % (AUTO) 0.5 % (0.0-5.0); EOSINOPHILS # (AUTO) 0.24 K/uL (0.00-0.70); EOSINOPHILS % (AUTO) 1.8 % (0.0-8.0); IMMATURE GRANULOCYTE ABSOLUTE 0.08 K/uL (0-1); LYMPHOCYTES # (AUTO) 1.8 K/uL (1.0-4.8); LYMPHOCYTES % (AUTO) 13.8 % (21.0-51.0); MEAN CORPUSCULAR HEMOGLOBIN 33.3 pg (27.0-33.0); MEAN CORPUSCULAR HGB CONC 33.6 g/dL (32.0-36.0); MEAN CORPUSCULAR VOLUME 99.1 fL (79-99); MONOCYTES # (AUTO) 1.5 K/uL (0.1-1.0); MONOCYTES % (AUTO) 11.3 % (3.0-13.0); NEUTROPHILS # (AUTO) 9.5 K/uL (1.8-7.7); PLATELET COUNT (AUTO) 93 K/uL (130-400); RED BLOOD CELL COUNT(AUTO) 3.33 MIL/uL (4.00-5.50); RED CELL DISTRIBUTION WIDTH 16.5 % (11.0-15.5); WHITE BLOOD COUNT (AUTO) 13.2 K/uL (4.8-10.8)
[2024-12-01 05:15] LABS: ALBUMIN 1.8 g/dL (3.5-5.0); BILIRUBIN,DIRECT 2.2 mg/dL (0.0-0.3); BILIRUBIN,TOTAL 4.6 mg/dL (0.2-1.0); CREATININE 0.9 mg/dL (0.5-1.0); MAGNESIUM 1.8 mg/dL (1.80-2.40); POTASSIUM 4.1 mmol/L (3.5-5.1); TOTAL PROTEIN, SERUM 5.7 g/dL (6.0-8.3)
[2024-12-01] MEDS: PANTOPrazole 40 MG TAB DR PO SCH (08:20)
--- NOTE | 2024-12-01 10:39 | HMCIMG ---
Exam Type: MRI OF THE ABDOMEN WITHOUT CONTRAST and MR cholangiopancreatography Comparison Study: none History: PANCREATITIS, R/O ANY CHOLEDOCHOLITHIASIS PROTOCOL: Examination is done with multiecho multiplanar sequences. ASSET with multiplanar 3-D reconstructions MR cholangiopancreatography sequences are also available for review. MRCP performed customary fashion. 2D axial FIESTA fat-saturated images of abdomen, coronal thick slab MRCP ASSET scan and coronal thin slab MRCP ASSET 3 mm images and maximum intensity projection postprocessing, MIP projected in the customary circumferential and head over heels fashion. FINDINGS: No evidence of nephro or ureterolithiasis is found. No hydronephrosis or ureteral dilatation is seen. The stomach is unremarkable. There is no evidence of gastric dilatation. No blastic thickening is noted to suggest inflammation or tumor. There is no perforation. There is no gastric outlet obstruction. There is no ulceration. The liver is irregular. There is ascites. The spleen is enlarged. These 3 findings are consistent with portal venous hypertension and cirrhosis. The pancreas shows normal anatomy. It is not fatty replaced. It shows no lesions. The pancreatic duct is not dilated. The gallbladder is surgically absent. The adrenal glands are unremarkable. There is no enlargement. No lesions are noted. The visualized segments of large and small bowel appear unremarkable. The bony and vascular structures are unremarkable for the patient's age. MRCP is likewise unremarkable. The common bile duct is well as the intrahepatic bile ducts are well seen without filling defects to suggest calculi. There are no areas of dilatation or abrupt cutoffs. IMPRESSION: No choledocholithiasis. No bile duct dilatation. Findings consistent with cirrhosis. Pancreas appears unremarkable.
--- NOTE | 2024-12-01 11:19 | CONS ---
GASTROENTEROLOGY CONSULTATION NOTE Date of Consultation: December 01, 2024 Time of Consultation: 11:19 History of Present Illness: This is a 59-year-old female with past medical history of cirrhosis secondary to hepatitis C status posttreatment, fibromyalgia, nephrolithiasis, uterine cancer, gastritis who presented due to epigastric pain radiating to the back. She also reported nausea and vomiting. She takes lactulose however for the past few days has been on hold due to persistent diarrhea. She has history of pancreatitis earlier this year. She follows Dr. Cifuentes outpatient. She has history of esophageal varices. We were consulted due to abdominal pain. Hemoglobin 11.1 with a platelet count of 93 and INR 1.48. Total bilirubin 4.6, AST 38, ALT 19 and alkaline phos of 142. Lipase mildly elevated on admission at 101 however today is 23. Abdominal ultrasound revealing cirrhosis with perihepatic ascites. CT abdomen pelvis revealing mild nonspecific mesenteric edema surrounding the pancreas. MRCP was done with no evidence of choledocholithiasis. Pancreas normal on MRCP. Review of Systems: CONSTITUTIONAL: No malaise or change in sensation of wellbeing. ENMT: No rhinorrhea, otorrhea, sinus pain, ear ache. CARDIOVASCULAR: No angina, palpitations, orthopnea or paroxysmal dyspnea. RESPIRATORY: No SOB. GASTROINTESTINAL: No abdominal pain, nausea, vomiting, diarrhea, hematemesis, melena or change in the patient's habitual bowel movements consistency/number. GENITOURINARY: No dysuria, hematuria or change in bladder continence. MUSCULOSKELETAL: No new muscle pain or decrease in muscular strength. No new joint swelling, redness or tenderness. SKIN: No new rash. Past Medical History: [PAST MEDICAL HISTORY: Hypertension, fibromyalgia, cirrhosis of the liver, history of hepatitis-C status post treatment, history of left renal nephrolithiasis, prior history of pancreatitis PAST SURGICAL HISTORY: Previous history of cholecystectomy, history of appendectomy PAST SOCIAL HISTORY: Patient denies any history of significant smoking or alcohol consumption FAMILY HISTORY: Denies pertinent family history Allergies: No known drug allergies Home medications: Patient reports being on amlodipine 2.5 mg daily, lactulose 30 ml b.i.d., and Protonix 40 mg daily Coded Allergies: No Known Drug Allergies (Unverified Allergy, Unknown, 11/29/24) Physical Exam: GEN: Awake, alert, oriented in person, time and place, and in no acute distress. HEENT: No sinus tenderness. Tympanic membranes were not examined. No rhinorrhea. Oral pharyngeal mucosa is pink, moist and within normal limits. Neck is supple with no cervical lymphadenopathy, thyromegaly or JVD. CHEST: Inspection, palpation and percussion of the chest were unremarkable. Lung auscultation revealed normal breath sounds bilaterally. CARDIAC: PMI is within normal limits. Heart sounds are regular. Normal S1, S2. No gallop or murmur. ABD: Soft, non-tender and not distended. No peritoneal signs on palpation. No organomegaly. Normal bowel sounds. EXT: No cyanosis or clubbing. No edema. SKIN: Intact. No rashes. JOINTS: No evidence of synovitis or acute arthritis. NEURO: Alert and oriented to name, place and person. Cranial nerve examination is unremarkable. No focal motor deficits. Normal speech. Gait is normal. Strength is normal. Vital Sign (Last 24 Hours) 11/30/24 12/01/24 12/01/24 20:00 07:21 08:00 Temp 98.1 Pulse 88 Resp 20 B/P (MAP) 121/57 Pulse Ox 95 O2 Delivery Room Air O2 Flow Rate 0 FiO2 21 Intake & Output (last 24hrs) 11/30/24 11/30/24 12/01/24 15:00 23:00 07:00 Intake Total 0 ml Balance 0 ml Laboratory: [ ] Laboratory: Test 12/01/24 05:15 12/01/24 04:46 11/29/24 20:10 11/29/24 16:13 Range/Units Whole Blood Glucose 82 70-110 MG/DL White Blood Count 13.2 #H 4.8-10.8 K/uL Red Blood Count 3.33 L 4.00-5.50 MIL/uL Hemoglobin 11.1 L 12.0-16.0 g/dL Hematocrit 33.0 L 36-48 % Mean Corpuscular Volume 99.1 H 79-99 fL Mean Corpuscular Hemoglobin 33.3 H 27.0-33.0 pg Mean Corpuscular Hemoglobin Concent 33.6 32.0-36.0 g/dL Red Cell Distribution Width 16.5 H 11.0-15.5 % Platelet Count 93 L 130-400 K/uL Mean Platelet Volume 11.0 H 7.5-10.5 fL Immature Granulocyte % (Auto) 0.6 0-1 % Neutrophils (%) (Auto) 72.0 40.0-77.0 % Lymphocytes (%) (Auto) 13.8 L 21.0-51.0 % Monocytes (%) (Auto) 11.3 3.0-13.0 % Eosinophils (%) (Auto) 1.8 0.0-8.0 % Basophils (%) (Auto) 0.5 0.0-5.0 % Neutrophils # (Auto) 9.5 H 1.8-7.7 K/uL Lymphocytes # (Auto) 1.8 1.0-4.8 K/uL Monocytes # (Auto) 1.5 H 0.1-1.0 K/uL Eosinophils # (Auto) 0.24 0.00-0.70 K/uL Basophils # (Auto) 0.07 0.00-0.20 K/uL Absolute Immature Granulocyte (auto 0.08 0-1 K/uL Nucleated Red Blood Cells 0.0 0.0-0.19 % Sodium Level 143 136-145 mmol/L Potassium Level 4.1 3.5-5.1 mmol/L Chloride Level 112 H 101-111 mmol/L Carbon Dioxide Level 26 21-32 mmol/L Blood Urea Nitrogen 16 7-18 mg/dL Creatinine 0.9 0.5-1.0 mg/dL Glomerular Filtration Rate Calc 74 >90 mL/min Random Glucose 89 70-105 mg/dL Total Calcium 7.8 L 8.5-10.1 mg/dL Magnesium Level 1.80 1.80-2.40 mg/dL Total Bilirubin 4.6 H 0.2-1.0 mg/dL Direct Bilirubin 2.2 H 0.0-0.3 mg/dL Aspartate Amino Transf (AST/SGOT) 38 H 10-37 U/L Alanine Aminotransferase (ALT/SGPT) 19 # 12-78 U/L Alkaline Phosphatase 142 H 50-136 U/L B-Type Natriuretic Peptide 141 H 0-100 pg/mL Total Protein 5.7 L 6.0-8.3 g/dL Albumin 1.8 L 3.5-5.0 g/dL Amylase Level 28 # 25-115 U/L Lipase 23 16-77 U/L Total Creatine Kinase 136 21-232 U/L Troponin I High Sensitivity 100 *H 4-50 ng/L Erythrocyte Sedimentation Rate 7 0-30 MM/HR Prothrombin Time 15.1 H 9.6-11.6 SEC Prothromb Time International Ratio 1.48 H 0.85-1.15 Activated Partial Thromboplast Time 34.1 26.3-35.5 SEC Lactate Dehydrogenase 308 H 81-234 U/L C-Reactive Protein, Quantitative 8.60 H 0.5-3.0 mg/L Triglycerides Level 104 30-200 mg/dL Cholesterol Level 140 <200 mg/dL LDL Cholesterol 73 0-99 mg/dL HDL Cholesterol 132 H 35-85 mg/dL Procalcitonin < 0.05 L 0.05-0.5 ng/mL Current Medications Medications (Trade) Dose Ordered Sig/Gisella Route PRN Reason Start Time Stop Time Status Last Admin Dose Admin Acetaminophen (TYLenol 325MG TAB) 650 mg Q6H PRN PO MILD PAIN (1-3) 11/29/24 14:30 12/29/24 14:29 Amlodipine Besylate (NorvASC 2.5MG TAB) 2.5 mg DAILY PO 11/30/24 09:00 12/30/24 08:59 11/30/24 09:48 2.5 MG Dextrose (D50w) 50 ml AD PRN IV HYPOGLYCEMIA PROTOCOL 11/30/24 13:30 11/30/24 13:25 DC Dextrose (D50w) 50 ml AD PRN IV HYPOGLYCEMIA PROTOCOL 11/30/24 13:30 12/30/24 13:29 Enoxaparin Sodium (Lovenox) 30 mg HS SQ 11/30/24 21:00 12/30/24 20:59 Glucagon (Glucagon 1mg Kit) 1 mg AD PRN IM HYPOGLYCEMIA PROTOCOL 11/30/24 13:30 11/30/24 13:25 DC Glucagon (Glucagon 1mg Kit) 1 mg AD PRN IM HYPOGLYCEMIA PROTOCOL 11/30/24 13:30 12/30/24 13:29 Insulin Human Regular (humuLIN R 100 UNIT/ML 3ML) INSULIN SLIDING SCAL... ACHS SQ 11/30/24 16:30 11/30/24 13:25 DC Insulin Human Regular (humuLIN R 100 UNIT/ML 3ML) INSULIN SLIDING SCAL... ACHS SQ 11/30/24 16:30 12/30/24 16:29 Lactated Ringer's 1,000 ml @ 100 mls/hr Q10H IV 11/29/24 14:30 12/29/24 14:29 11/30/24 20:25 100 MLS/HR Lactulose (Constulose 20gm/ 30ml Udcup) 20 gm BID PO 11/30/24 09:00 12/30/24 08:59 11/30/24 20:20 20 GM Magnesium Sulfate 50 ml @ 0 mls/hr PROTOCOL PRN IV other 11/30/24 13:30 11/30/24 13:27 DC Magnesium Sulfate 50 ml @ 0 mls/hr PROTOCOL PRN IV other 11/30/24 13:30 12/30/24 13:29 12/01/24 05:40 1.8 MLS/HR Miscellaneous Medication (Lactulose ) 30 ml BID PO 11/30/24 21:00 11/30/24 10:13 DC Morphine Sulfate (morPHINE 2MG SYG) 2 mg Q6H PRN IVP SEVERE PAIN (7-10) 11/29/24 14:30 12/06/24 14:29 11/30/24 20:24 2 MG Ondansetron HCl (zoFRAN 4MG INJ) 4 mg Q6H PRN IVP NAUSEA/VOMITING 11/29/24 14:30 12/29/24 14:29 Pantoprazole Sodium (PROTonix 40MG INJ) 40 mg DAILY IVP 11/30/24 09:00 11/30/24 10:11 DC 11/30/24 09:48 40 MG Pantoprazole Sodium (PROTonix 40MG TAB) 40 mg DAILY PO 12/01/24 09:00 12/31/24 08:59 Potassium Chloride 100 ml @ 100 mls/hr AD PRN IV POTASSIUM PROTOCOL 11/29/24 19:30 11/30/24 13:21 DC Potassium Chloride 100 ml @ 100 mls/hr AD PRN IV POTASSIUM PROTOCOL 11/30/24 13:30 11/30/24 13:25 DC Potassium Chloride 100 ml @ 100 mls/hr AD PRN IV POTASSIUM PROTOCOL 11/30/24 13:30 12/30/24 13:29 Potassium Chloride (K-Dur/Klor-Con 20meq) 20 meq AD PRN PO POTASSIUM PROTOCOL 11/29/24 19:30 11/30/24 13:21 DC Potassium Chloride (K-Dur/Klor-Con 20meq) 20 meq AD PRN PO POTASSIUM PROTOCOL 11/30/24 13:30 11/30/24 13:25 DC Potassium Chloride (K-Dur/Klor-Con 20meq) 20 meq AD PRN PO POTASSIUM PROTOCOL 11/30/24 13:30 12/30/24 13:29 Potassium Chloride (KCl 10% Elixir 20meq/15ml) 20 meq AD PRN PO POTASSIUM PROTOCOL 11/29/24 19:30 11/30/24 13:21 DC Potassium Chloride (KCl 10% Elixir 20meq/15ml) 20 meq AD PRN PO POTASSIUM PROTOCOL 11/30/24 13:30 11/30/24 13:25 DC Potassium Chloride (KCl 10% Elixir 20meq/15ml) 20 meq AD PRN PO POTASSIUM PROTOCOL 11/30/24 13:30 12/30/24 13:29 Diagnostics / Radiology: [COPY/PASTE HERE IF NO REPORTS PLEASE DELETE SECTION] Assessment: Epigastric pain N/V Acute pancreatitis? Decompensated cirrhosis Plan: EGD in am Continue GI prophylaxis Avoid NSAIDs Antireflux measures Monitor H&H and transfuse as needed Call with questions, concerns or change in clinical status Patient to follow-up at clinic post discharge Thank you for this consult GRIS FIGUEROA VOLCANOLOGY PROFESSOR December 01, 2024 11:19
--- NOTE | 2024-12-01 11:35 | NUR ---
DCP: HOME Pt currently lives with her 23 yr old dgt in a home. Pt states that dgt has an intellectual delay and "has the mind of a kid" and requires a lot of pt's assistance. Pt receives $144 a month in [employer] benefits. Pt reports having 24.5 hrs of provider services via [facility]. Pt uses a cane at home to help her move around. PCP is Dr. Wolfgang Quiroz. At [place] pt will return home and pt drove her car to the hospital. Addendum: 12/01/24 at 1139 by IVONE VILLALOBOS SS Amended: Links added.
[2024-12-01] MEDS ORDERED: ketOROlac 15MG/ML VIAL (15MG/ML) IV PRN (16:00)
--- NOTE | 2024-12-01 16:03 | PN ---
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 Symptoms have been accompanied by nausea and vomiting as well. The pain was [id number] in intensity which she rates as 8/10. Patient also reports having loose stool over the last 2-3 days. Patient does have underlying history of liver cirrhosis and she takes lactulose as well which she has been holding for the past two days due to persistent diarrhea. Patient reports that she has had similar symptoms earlier this year requiring hospitalization in [facility]. She states that she may have had episode of pancreatitis then. She had similar symptoms again in October requiring hospitalization [facility] and was told that she had nephrolithiasis causing the symptoms. She is supposed to follow up with Urology as outpatient for left renal nephrolithiasis. Patient denies any significant cardiac comorbidities. She is followed by Dr. Lisa with Cardiology as outpatient. Denies any previous history of [place] otherwise. She is followed by Dr. Cifuentes with GI as outpatient. She reports having previous history of esophageal varices as well requiring endoscopy. She denies any significant alcohol consumption and reports previous history of cholecystectomy. Patient on presentation to the hospital was found to have WBC count of 6100, hemoglobin of 12.8, [place] [address]. BMP on presentation was remarkable for sodium of 146, potassium 3.6, chloride of 113, BUN of five, creatinine of 0.7, AST of 49, ALT of 27, alkaline phosphatase of 192, ammonia of 37, high sensitivity troponin was noted to be mildly elevated in 96, albumin 2.2, lipase was noted to be elevated at 101.Patient underwent CT abdomen pelvis without contrast which showed cirrhosis of the liver with splenomegaly and mild nonspecific mesenteric edema with mild stranding noted around the pancreas concerning for pancreatitis. Patient will be admitted for further treatment and management of pancreatitis. Discussed with Dr. Cifuentes who is currently out of town, we will obtain MRCP to rule out any significant biliary abnormality for further elucidation of pancreatitis. Cardiac panel will be trended to rule out active ACS, EKG shows normal sinus rhythm. Patient's case was discussed with Dr. Gao with Cardiology, recommends for monitoring for now and troponin elevation likely secondary to pancreatitis. We will monitor this patient closely and see how she progresses over the next 48-72 hours. 11/30 patient was seen by nurse practitioner and physician during rounding in room 308. Most recent troponin is trending down today is 100. Ultrasound abdomen shows cirrhosis and small perihepatic ascites. CT abdomen/pelvis showed cystic liver ascites splenomegaly. Mesenteric edema surrounding pancreas. Mild pancreatitis. We are pending further evaluation of GI and dinkey engine mechanic at this moment. 2D echo showed EF 60 to 65% stage I diastolic dysfunction. At this moment patient is pending MRCP. We will continue to monitor patient in the meantime. A.m. labs. 12/01 patient was seen by nurse practitioner and physician in room 308. Meld score is 17. Patient denies any abdominal pain, nausea, vomiting. Patient is s/p MRCP that showed findings consistent with cirrhosis. Pancreas appears un remarkable. Liver enzymes have improved. WBC today is 13.2. Patient was evaluated by the GI and at this moment we are pending further recommendations. 2D echo EF 60 to 65% stage I diastolic dysfunction. We are still pending dinkey engine mechanic recommendations/evaluation. We will continue to monitor patient in the meantime. A.m. labs] REVIEW OF SYSTEMS CONSTITUTIONAL: Denies fevers, chills, or night sweats. No unintentional weight loss reported. NEUROLOGICAL: Denies headache, amaurosis fugax, motor weakness, sensory deficit, vertigo/spinning sensation, gait abnormalities, or tremors. ENT: No hearing loss, otalgia, otorrhea, rhinitis, rhinorrhea, hoarseness, or sore throat. CARDIOVASCULAR: Denies any exertional angina, dyspnea on exertion, orthopnea, paroxysmal nocturnal dyspnea, palpitations, life-threatening arrhythmias, claudication. PULMONARY: Denies any shortness of breath, cough, phlegm/sputum, hemoptysis, pleuritic chest pain. SLEEP: Denies morning headaches, daytime somnolence or napping. Denies difficulty falling asleep, staying asleep, waking from sleep. Denies knowledge of snoring. GASTROINTESTINAL: Denies any Nausea, vomiting, abdominal pain, GENITOURINARY: Denies frequency, urgency, nocturia, hematuria or incontinence (Storage/Irritative symptoms.) Low urinary stream, straining to void, urinary intermittency or hesitancy, splitting of the voiding stream, terminal dribbling. ENDOCRINOLOGIC: Denies polyuria, polydipsia, polyphagia or heat/cold intolerances. HEMATOLOGIC: Denies thrombophilia/previous clots, or coagulopathy/bleeding disorders. ONCOLOGIC: Denies personal history of malignancy. DERMATOLOGIC: Denies rashes or pruritus. PSYCHIATRIC: Denies any suicidal or homicidal ideation. Denies hallucinations. PHYSICAL EXAM GENERAL APPEARANCE: The patient is awake, alert, and oriented, in no acute cardiopulmonary distress. NEUROLOGICAL: Cranial nerves II-XII grossly intact. Motor is 5/5 in bilateral upper and lower extremities proximal to distal. No sensory deficits. HEENT: Face is symmetric. Pupils are equal and reactive. Extraocular movements are intact. NECK: Supple. No JVD. No thyromegaly. No submental, submandibular, pre- /postauricular, occipital or supraclavicular lymphadenopathy. CHEST: Normal chest expansion. No Telemetry. LUNGS: Absence of any rales, rhonchi or any wheezing. CARDIOVASCULAR: Regular. S1 and S2 normal. No appreciable rubs, murmurs or gallops. ABDOMEN: Soft, nontender, and nondistended. There is no rebound, voluntary guarding, or rigidity. : Deferred. No [place]. EXTREMITIES: Non-edematous and not cyanotic. No clubbing. Good capillary refill. SKIN: No skin breakdown. Vital Signs (last 8hr) Date Time Temp Pulse Resp B/P (MAP) Pulse Ox O2 Delivery O2 Flow Rate FiO2 12/01/24 12:00 98.2 84 19 130/62 97 Room Air 12/01/24 08:00 95 Room Air* 0 21 12/01/24 08:00 98.1 88 20 121/57 95 Room Air LABS: Laboratory: Test 12/01/24 11:19 12/01/24 04:46 11/29/24 20:10 11/29/24 16:13 Range/Units Whole Blood Glucose 76 70-110 MG/DL White Blood Count 13.2 #H 4.8-10.8 K/uL Red Blood Count 3.33 L 4.00-5.50 MIL/uL Hemoglobin 11.1 L 12.0-16.0 g/dL Hematocrit 33.0 L 36-48 % Mean Corpuscular Volume 99.1 H 79-99 fL Mean Corpuscular Hemoglobin 33.3 H 27.0-33.0 pg Mean Corpuscular Hemoglobin Concent 33.6 32.0-36.0 g/dL Red Cell Distribution Width 16.5 H 11.0-15.5 % Platelet Count 93 L 130-400 K/uL Mean Platelet Volume 11.0 H 7.5-10.5 fL Immature Granulocyte % (Auto) 0.6 0-1 % Neutrophils (%) (Auto) 72.0 40.0-77.0 % Lymphocytes (%) (Auto) 13.8 L 21.0-51.0 % Monocytes (%) (Auto) 11.3 3.0-13.0 % Eosinophils (%) (Auto) 1.8 0.0-8.0 % Basophils (%) (Auto) 0.5 0.0-5.0 % Neutrophils # (Auto) 9.5 H 1.8-7.7 K/uL Lymphocytes # (Auto) 1.8 1.0-4.8 K/uL Monocytes # (Auto) 1.5 H 0.1-1.0 K/uL Eosinophils # (Auto) 0.24 0.00-0.70 K/uL Basophils # (Auto) 0.07 0.00-0.20 K/uL Absolute Immature Granulocyte (auto 0.08 0-1 K/uL Nucleated Red Blood Cells 0.0 0.0-0.19 % Sodium Level 143 136-145 mmol/L Potassium Level 4.1 3.5-5.1 mmol/L Chloride Level 112 H 101-111 mmol/L Carbon Dioxide Level 26 21-32 mmol/L Blood Urea Nitrogen 16 7-18 mg/dL Creatinine 0.9 0.5-1.0 mg/dL Glomerular Filtration Rate Calc 74 >90 mL/min Random Glucose 89 70-105 mg/dL Total Calcium 7.8 L 8.5-10.1 mg/dL Magnesium Level 1.80 1.80-2.40 mg/dL Total Bilirubin 4.6 H 0.2-1.0 mg/dL Direct Bilirubin 2.2 H 0.0-0.3 mg/dL Aspartate Amino Transf (AST/SGOT) 38 H 10-37 U/L Alanine Aminotransferase (ALT/SGPT) 19 # 12-78 U/L Alkaline Phosphatase 142 H 50-136 U/L B-Type Natriuretic Peptide 141 H 0-100 pg/mL Total Protein 5.7 L 6.0-8.3 g/dL Albumin 1.8 L 3.5-5.0 g/dL Amylase Level 28 # 25-115 U/L Lipase 23 16-77 U/L Total Creatine Kinase 136 21-232 U/L Troponin I High Sensitivity 100 *H 4-50 ng/L Erythrocyte Sedimentation Rate 7 0-30 MM/HR Prothrombin Time 15.1 H 9.6-11.6 SEC Prothromb Time International Ratio 1.48 H 0.85-1.15 Activated Partial Thromboplast Time 34.1 26.3-35.5 SEC Lactate Dehydrogenase 308 H 81-234 U/L C-Reactive Protein, Quantitative 8.60 H 0.5-3.0 mg/L Triglycerides Level 104 30-200 mg/dL Cholesterol Level 140 <200 mg/dL LDL Cholesterol 73 0-99 mg/dL HDL Cholesterol 132 H 35-85 mg/dL Procalcitonin < 0.05 L 0.05-0.5 ng/mL Current Medications Medications (Trade) Dose Ordered Sig/Gisella Route PRN Reason Start Time Stop Time Status Last Admin Dose Admin Acetaminophen (TYLenol 325MG TAB) 650 mg Q6H PRN PO MILD PAIN (1-3) 11/29/24 14:30 12/29/24 14:29 Amlodipine Besylate (NorvASC 2.5MG TAB) 2.5 mg DAILY PO 11/30/24 09:00 12/30/24 08:59 11/30/24 09:48 2.5 MG Dextrose (D50w) 50 ml AD PRN IV HYPOGLYCEMIA PROTOCOL 11/30/24 13:30 11/30/24 13:25 DC Dextrose (D50w) 50 ml AD PRN IV HYPOGLYCEMIA PROTOCOL 11/30/24 13:30 12/30/24 13:29 Enoxaparin Sodium (Lovenox) 30 mg HS SQ 11/30/24 21:00 12/30/24 20:59 Glucagon (Glucagon 1mg Kit) 1 mg AD PRN IM HYPOGLYCEMIA PROTOCOL 11/30/24 13:30 11/30/24 13:25 DC Glucagon (Glucagon 1mg Kit) 1 mg AD PRN IM HYPOGLYCEMIA PROTOCOL 11/30/24 13:30 12/30/24 13:29 Insulin Human Regular (humuLIN R 100 UNIT/ML 3ML) INSULIN SLIDING SCAL... ACHS SQ 11/30/24 16:30 11/30/24 13:25 DC Insulin Human Regular (humuLIN R 100 UNIT/ML 3ML) INSULIN SLIDING SCAL... ACHS SQ 11/30/24 16:30 12/30/24 16:29 Lactated Ringer's 1,000 ml @ 100 mls/hr Q10H IV 11/29/24 14:30 12/29/24 14:29 11/30/24 20:25 100 MLS/HR Lactulose (Constulose 20gm/ 30ml Udcup) 20 gm BID PO 11/30/24 09:00 12/30/24 08:59 11/30/24 20:20 20 GM Magnesium Sulfate 50 ml @ 0 mls/hr PROTOCOL PRN IV other 11/30/24 13:30 11/30/24 13:27 DC Magnesium Sulfate 50 ml @ 0 mls/hr PROTOCOL PRN IV other 11/30/24 13:30 12/30/24 13:29 12/01/24 05:40 1.8 MLS/HR Miscellaneous Medication (Lactulose ) 30 ml BID PO 11/30/24 21:00 11/30/24 10:13 DC Morphine Sulfate (morPHINE 2MG SYG) 2 mg Q6H PRN IVP SEVERE PAIN (7-10) 11/29/24 14:30 12/06/24 14:29 11/30/24 20:24 2 MG Ondansetron HCl (zoFRAN 4MG INJ) 4 mg Q6H PRN IVP NAUSEA/VOMITING 11/29/24 14:30 12/29/24 14:29 Pantoprazole Sodium (PROTonix 40MG INJ) 40 mg DAILY IVP 11/30/24 09:00 11/30/24 10:11 DC 11/30/24 09:48 40 MG Pantoprazole Sodium (PROTonix 40MG TAB) 40 mg DAILY PO 12/01/24 09:00 12/31/24 08:59 Potassium Chloride 100 ml @ 100 mls/hr AD PRN IV POTASSIUM PROTOCOL 11/29/24 19:30 11/30/24 13:21 DC Potassium Chloride 100 ml @ 100 mls/hr AD PRN IV POTASSIUM PROTOCOL 11/30/24 13:30 11/30/24 13:25 DC Potassium Chloride 100 ml @ 100 mls/hr AD PRN IV POTASSIUM PROTOCOL 11/30/24 13:30 12/30/24 13:29 Potassium Chloride (K-Dur/Klor-Con 20meq) 20 meq AD PRN PO POTASSIUM PROTOCOL 11/29/24 19:30 11/30/24 13:21 DC Potassium Chloride (K-Dur/Klor-Con 20meq) 20 meq AD PRN PO POTASSIUM PROTOCOL 11/30/24 13:30 11/30/24 13:25 DC Potassium Chloride (K-Dur/Klor-Con 20meq) 20 meq AD PRN PO POTASSIUM PROTOCOL 11/30/24 13:30 12/30/24 13:29 Potassium Chloride (KCl 10% Elixir 20meq/15ml) 20 meq AD PRN PO POTASSIUM PROTOCOL 11/29/24 19:30 11/30/24 13:21 DC Potassium Chloride (KCl 10% Elixir 20meq/15ml) 20 meq AD PRN PO POTASSIUM PROTOCOL 11/30/24 13:30 11/30/24 13:25 DC Potassium Chloride (KCl 10% Elixir 20meq/15ml) 20 meq AD PRN PO POTASSIUM PROTOCOL 11/30/24 13:30 12/30/24 13:29 DIAGNOSTICS / RADIOLOGY: [ ] ASSESSMENT: [Acute pancreatitis, POA Elevated troponin, likely demand ischemia, POA Underlying history of liver cirrhosis secondary to hepatitis-C, MELD Na score of 17, POA Acute on chronic diastolic congestive heart failure EF 60 to 65% stage I diastolic dysfunction Electrolyte imbalance Hypernatremia, POA Hypoalbuminemia secondary to underlying cirrhosis of the liver, POA History of hypertension POA Obesity, POA Hx of RAQUEL, POA Prior history of pancreatitis, POA History of nephrolithiasis, POA History of fibromyalgia, POA Thrombocytopenia and coagulopathy secondary to portal hypertension/liver cirrhosis, POA PLAN: Continue in medical-surgical floor with tele Discontinue morphine start patient on Toradol Continue LR at 100 mL/hour 2D echo showed EF 60 to 65% stage I diastolic dysfunction. Pending cardiology evaluation/recommendations MRCP shows cirrhosis perihepatic ascites Pending GI evaluation/recommendations Patient will be placed on GI prophylaxis with Protonix We will monitor closely for signs of bleeding, we will monitor closely for signs of infection Home medications reconciled by STAGE SET DESIGNER Patient to continue with CPAP at night Patient continues on full liquid diet Urinalysis negative A.m. labs PT Case management for disposition ATTESTATION BY PHYSICIAN I have seen and examined the patient. I reviewed the documentation, medical decision making, and treatment plan as noted by the mid-level provider above. I agree with the findings and plan of care. ENRRIQUE Church MD PROGRAM REVIEW DIRECTOR December 01, 2024 16:03
[2024-12-02] VITALS (22 sets, daily range): BP systolic 103–146; BP diastolic 60–90; PULSE 74–130; RESP 15–19; TEMP 97.3–98.8; O2SAT 97
[2024-12-02 06:36] LABS: BASOPHILS # (AUTO) 0.06 K/uL (0.00-0.20); BASOPHILS % (AUTO) 0.6 % (0.0-5.0); EOSINOPHILS # (AUTO) 0.46 K/uL (0.00-0.70); EOSINOPHILS % (AUTO) 4.7 % (0.0-8.0); HEMATOCRIT 34.7 % (36-48); IMMATURE GRANULOCYTE ABSOLUTE 0.05 K/uL (0-1); LYMPHOCYTES # (AUTO) 1.9 K/uL (1.0-4.8); LYMPHOCYTES % (AUTO) 19.3 % (21.0-51.0); MEAN CORPUSCULAR HGB CONC 33.4 g/dL (32.0-36.0); MEAN CORPUSCULAR VOLUME 98.9 fL (79-99); MONOCYTES # (AUTO) 1.1 K/uL (0.1-1.0); MONOCYTES % (AUTO) 11.2 % (3.0-13.0); NEUTROPHILS # (AUTO) 6.3 K/uL (1.8-7.7); NEUTROPHILS % (AUTO) 63.7 % (40.0-77.0); PLATELET COUNT (AUTO) 89 K/uL (130-400); RED BLOOD CELL COUNT(AUTO) 3.51 MIL/uL (4.00-5.50); RED CELL DISTRIBUTION WIDTH 16.2 % (11.0-15.5); WHITE BLOOD COUNT (AUTO) 9.8 K/uL (4.8-10.8)
[2024-12-02 06:45] LABS: BILIRUBIN,TOTAL 3.9 mg/dL (0.2-1.0); CREATININE 0.7 mg/dL (0.5-1.0); MAGNESIUM 1.9 mg/dL (1.80-2.40); TOTAL PROTEIN, SERUM 6.2 g/dL (6.0-8.3)
[2024-12-02] MEDS ORDERED: proPOFol 10 MG/ML 20ML VIAL IV ONE (07:48)
[2024-12-02] MEDS ORDERED: LIDOCAINE PF 100MG/5ML (2%) SYRINGE 5ML ONE (07:48)
[2024-12-02] MEDS ORDERED: GLYCOPYRROLATE 0.2 MG/ML 5 ML VIAL ONE (07:49)
--- NOTE | 2024-12-02 12:30 | DS ---
Discharge Summary Hospital Course Summary: DATE OF ADMISSION:[11/29/2024] DATE OF DISCHARGE:[12/02/2024] DISPOSITION:[HOME] CONDITION:[MEDICALLY STABLE] CONSULTANTS:[GI] FOLLOW UP APPOINTMENTS:[FOLLOW-UP WITH PCP IN 2 TO 3 DAYS. FOLLOW UP WITH THE GI WITHIN ONE WEEK] PROCEDURES:[EGD 12/02/2024] IMAGING: REPORT ATTACHED TO SUMMARY MICROBIOLOGY: REPORT ATTACHED TO SUMMARY ACTIVITY:[INDEPENDENT] HOME MEDICATIONS: SEE NEW MEDICATIONS:[LACTULOSE WRITTEN PRESCRIPTION, PANTOPRAZOLE, AMLODIPINE] EMERGENCY INSTRUCTIONS: THE PATIENT WAS INSTRUCTED TO PRESENT TO THE NEAREST EMERGENCY DEPARTMENTR OR CALL 911 ONCE THEIR SYMPTOMS WILL RETURN OR WORSEN Regulatory Affairs Analyst(s): PATIENT IS 59 YEARS OLD FEMALE WHO CAME TO ER WITH CHIEF COMPLAINT OF PERSISTENT EPIGASTRIC PAIN HAS BEEN GOING ON FOR AT LEAST A WEEK AND WHICH HAS BEEN RADIATING TO HER BACK. SYMPTOMS WERE ACCOMPANIED BY NAUSEA AND VOMITING WELL. PATIENT WAS ALSO REPORTING LOOSE STOOLS. DURING HOSPITALIZATION ULTRASOUND ABDOMEN WAS PERFORMED AND SHOWED CIRRHOSIS AND SMALL PERIHEPATIC ASCITES. CT ABDOMEN/PELVIS SHOWED CIRRHOTIC LIVER ASCITES SPLENOMEGALY. MESENTERIC EDEMA SURROUNDING PANCREAS. MILD PANCREATITIS. BILIRUBIN AST AND ALT WAS ELEVATED. PATIENT UNDERWENT MRCP ON 12/01/2024 AND SHOWS CIRRHOSIS WITH SMALL AMOUNT OF PERIHEPATIC ASCITES. 2D ECHO WAS ALSO PERFORMED EF 60 TO 65% STAGE I DIASTOLIC DYSFUNCTION. TODAY PATIENT UNDERWENT EGD ORDERED BY GI AND SHOWS SMALL HIATAL HERNIA, GASTRITIS BIOPSIES WERE TAKEN. PATIENT WAS CLEARED TO BE DISCHARGED HOME FOLLOW UP OUTPATIENT WITH THE PCP IN 2 TO 3 DAYS. FOLLOW UP WITH THE GI WITHIN ONE WEEK. Procedure(s): REVIEW OF SYSTEMS CONSTITUTIONAL: Denies fevers, chills, or night sweats. No unintentional weight loss reported. NEUROLOGICAL: Denies headache, amaurosis fugax, motor weakness, sensory deficit, vertigo/spinning sensation, gait abnormalities, or tremors. ENT: No hearing loss, otalgia, otorrhea, rhinitis, rhinorrhea, hoarseness, or sore throat. CARDIOVASCULAR: Denies any exertional angina, dyspnea on exertion, orthopnea, paroxysmal nocturnal dyspnea, palpitations, life-threatening arrhythmias, claudication. PULMONARY: Denies any shortness of breath, cough, phlegm/sputum, hemoptysis, pleuritic chest pain. SLEEP: Denies morning headaches, daytime somnolence or napping. Denies difficulty falling asleep, staying asleep, waking from sleep. Denies knowledge of snoring. GASTROINTESTINAL: Denies any Nausea, vomiting, abdominal pain, GENITOURINARY: Denies frequency, urgency, nocturia, hematuria or incontinence (Storage/Irritative symptoms.) Low urinary stream, straining to void, urinary intermittency or hesitancy, splitting of the voiding stream, terminal dribbling. ENDOCRINOLOGIC: Denies polyuria, polydipsia, polyphagia or heat/cold intolerances. HEMATOLOGIC: Denies thrombophilia/previous clots, or coagulopathy/bleeding disorders. ONCOLOGIC: Denies personal history of malignancy. DERMATOLOGIC: Denies rashes or pruritus. PSYCHIATRIC: Denies any suicidal or homicidal ideation. Denies hallucinations. PHYSICAL EXAM GENERAL APPEARANCE: The patient is awake, alert, and oriented, in no acute cardiopulmonary distress. NEUROLOGICAL: Cranial nerves II-XII grossly intact. Motor is 5/5 in bilateral upper and lower extremities proximal to distal. No sensory deficits. HEENT: Face is symmetric. Pupils are equal and reactive. Extraocular movements are intact. NECK: Supple. No JVD. No thyromegaly. No submental, submandibular, pre-/postauricular, occipital or supraclavicular lymphadenopathy. CHEST: Normal chest expansion. No Telemetry. LUNGS: Absence of any rales, rhonchi or any wheezing. CARDIOVASCULAR: Regular. S1 and S2 normal. No appreciable rubs, murmurs or gallops. ABDOMEN: Soft, nontender, and nondistended. There is no rebound, voluntary guarding, or rigidity. : Deferred. No [place]. EXTREMITIES: Non-edematous and not cyanotic. No clubbing. Good capillary refill. SKIN: No skin breakdown. Assessment/Plan: ASSESSMENT: [Acute pancreatitis, POA Gastritis per EGD 12/02/2024 Elevated troponin, likely demand ischemia, POA Underlying history of liver cirrhosis secondary to hepatitis-C, MELD Na score of 17, POA Acute on chronic diastolic congestive heart failure EF 60 to 65% stage I diastolic dysfunction Electrolyte imbalance Hypernatremia, POA Hypoalbuminemia secondary to underlying cirrhosis of the liver, POA History of hypertension POA Obesity, POA Hx of RAQUEL, POA Prior history of pancreatitis, POA History of nephrolithiasis, POA History of fibromyalgia, POA Thrombocytopenia and coagulopathy secondary to portal hypertension/liver cirrhosis, POA Home Medications: Reported Medications Lactulose (Lactulose) 10 Gram/15 Ml Solution, 30 ML PO BID 11/29/24 Pantoprazole Sodium (Pantoprazole Sodium) 40 Mg Tablet.dr, 1 TAB PO DAILY 11/29/24 Amlodipine Besylate (Amlodipine Besylate) 2.5 Mg Tablet, 1 TAB PO DAILY 11/29/24 Time spent arranging discharge: 31-60 minutes ATTESTATION BY PHYSICIAN I have seen and examined the patient. I reviewed the documentation, medical decision making, and treatment plan as noted by the mid-level provider above. I agree with the findings and plan of care. ENRRIQUE Elise MD [employer] December 02, 2024 12:30
--- NOTE | 2024-12-02 14:16 | NUR ---
PATIENT DISCHARGED HOME ID BAND AND IV REMOVED. DISCHARGE INSTRUCTIONS EXPLAINED AND GIVEN TO PATIENT. MEDICINE SCRIPT GIVEN TO PATIENT. PATIENT VERBALIZED UNDERSTANDING. BELONGINGS PACKED AND TAKEN BY PATIENT. WHEELED DOWN TO PRIVATE CAR.
--- NOTE | 2024-12-02 16:43 | NUR ---
Pt observed walking the unit I. Pt denies needs. Pt DC home today
--- NOTE | 2024-12-05 11:45 | NUR ---
Transitional Phone Call Spoke to patient, "doing fine." States has the prescriptions and has taken the medicine before; no questions or concerns. States arm where magnesium was administered is "a bit swollen and sore but it's bearable;" referred to PCP - Wolfgang Quiroz or if symptoms worsen go to the nearest emergency room. States the follow up appointment with PCP - Dr. Quiroz is today 12/05/2024 at 1430; states will show the doctor. States the appointment with GI - Dr. Cifuentes is on 12/23/2024 but will try to get a sooner date. No further questions or concerns.
== END 2024-12-02 14:16 | disposition home or self-care (01) | DRG 282 ==
LOC: EDH 09:14 → EDHIP 09:15 → 3BH 16:30
PROVIDERS: ADMIT Internal Medicine; ATTEND Internal Medicine
PROC: 0DB68ZX Excision of Stomach, Via Natural or Artificial Opening Endoscopic, Diagnostic (ICD-10-PCS; principal; 2024-12-02)
PROC: 0DB78ZX Excision of Stomach, Pylorus, Via Natural or Artificial Opening Endoscopic, Diagnostic (ICD-10-PCS; 2024-12-02)
DX: K85.90 Acute pancreatitis without necrosis or infection, unspecified (principal); I50.33 Acute on chronic diastolic (congestive) heart failure; D68.9 Coagulation defect, unspecified; D69.6 Thrombocytopenia, unspecified; E88.09 Other disorders of plasma-protein metabolism, not elsewhere classified; E87.0 Hyperosmolality and hypernatremia; I24.89 Other forms of acute ischemic heart disease; E66.9 Obesity, unspecified; G47.33 Obstructive sleep apnea (adult) (pediatric); I11.0 Hypertensive heart disease with heart failure; K74.60 Unspecified cirrhosis of liver; K76.6 Portal hypertension; G89.29 Other chronic pain; K29.70 Gastritis, unspecified, without bleeding; K44.9 Diaphragmatic hernia without obstruction or gangrene; K21.9 Gastro-esophageal reflux disease without esophagitis; Z85.42 Personal history of malignant neoplasm of other parts of uterus; Z87.442 Personal history of urinary calculi; Z90.49 Acquired absence of other specified parts of digestive tract; Z68.38 Body mass index [BMI] 38.0-38.9, adult; B19.20 Unspecified viral hepatitis C without hepatic coma; R18.8 Other ascites
CPT/HCPCS: 36415; 43239; 74176; 74181; 76705; 80048; 80053; 80061; 80076; 80305; 81001; 82140; 82150; 82550; 82948; 83615; 83690; 83735; 83880; 84145; 84478; 84484; 85025; 85610; 85651; 85730; 86140; 93005; 93306; 93356; 94660; 99285; A4606; G0378; J0500; J1650; J2003; J2270; J2405; J2470; J2704; J3475; J3490; A4215; A4222; A4223; A4620; S8037

== ENCOUNTER → 2025-01-08 | Outpatient (CLI) | payer MEDICAID ==
[~2025-01-08] MED LIST: AMLO2.5T4 PO; LACT-441 PO; PANT40TA54 PO
--- NOTE | 2025-01-08 14:46 | HMCIMG ---
US VENOUS DOPPLER BILATERAL HISTORY: Localized edema COMPARISON: None TECHNIQUE: Bilateral lower extremity venous Doppler ultrasound study was performed. FINDINGS: The common femoral, femoral, popliteal, and posterior tibial veins are visualized. Normal flow with augmentation and compressibilities are demonstrated. The greater saphenous veins are also seen and grossly patent. IMPRESSION: 1. No evidence of deep venous thrombosis is seen.
== END | disposition home or self-care (01) ==
LOC: RAH 13:35
PROVIDERS: ATTEND Internal Medicine Gastroenterology
DX: R60.0 Localized edema (principal)
CPT/HCPCS: 93970